=== PATIENT | male | born 1955 | race Caucasian/White ===

== ENCOUNTER → 2017-06-18 08:46 | Outpatient (CLI) | payer MEDICAID, SELFPAY ==
[2017-06-18 09:16] LABS: Basophils % 0.8 % (0.1-2.0); Eosinophils # 0.2 K/mm3 (0.0-0.4); Eosinophils % 3.3 % (0.1-12.0); Hematocrit 42.4 % (42.0-52.0); Hemoglobin 14.3 g/dL (14.1-18.0); Lymphocytes # 2.4 K/mm3 (0.7-4.5); Lymphocytes % 48.2 K/mm3 (10-50); Mean Corpuscular HGB Conc 33.7 g/dL (31.8-35.4); Mean Corpuscular Hemoglobin 29.6 pg (27.0-31.2); Mean Corpuscular Volume 87.6 fl (80-94); Mean Platelet Volume 7.2 fl (7.4-10.4); Monocytes # 0.3 K/mm3 (0.1-1.0); Monocytes % 5.2 % (1.7-9.3); Neutrophils # 2.1 K/mm3 (1.8-7.8); Neutrophils % 42.5 % (37.0-80.0); Platelet Count 303 K/mm3 (142-424); Red Blood Count 4.84 M/mm3 (4.60-6.20); Red Cell Distribution Width 12.9 % (11.5-17.5)
[2017-06-18 11:09] LABS: Alanine Aminotransferase 40 U/L (12-78); Albumin Level 3.7 gm/dL (3.4-5.0); Alkaline Phosphatase 117 U/L (46-116); Anion Gap 12.1 mEq/L (5-15); Aspartate Amino Transferase 21 U/L (15-37); Bilirubin,Total 0.3 mg/dL (0.2-1.0); Blood Urea Nitrogen 11 mg/dL (7-18); Calcium 8.7 mg/dL (8.5-10.1); Carbon Dioxide 27 mmol/L (21.0-32.0); Chloride 105 mmol/L (98-107); Chol/HDL Ratio 3.9 (1-3.5); Cholesterol 124 mg/dL (140-200); Creatinine,Serum 0.71 mg/dL (0.70-1.30); Estimated Glomerular Filt Rate 114 ml/min (>60); GFR (African American) 137 ML/MIN (>60); Globulin 3.6 gm/dl (1.3-3.2); Glucose 91 mg/dL (74-106); HDL Cholesterol 32 mg/dL (27-67); LDL Cholesterol 77 mg/dL (0-130); Potassium 4.1 mmoL/L (3.5-5.1); Sodium 140 mmol/L (136-145); Thyroid Stimulating Hormone 1.62 uIU/ml (0.358-3.740); Total Protein,Serum 7.3 gm/dL (6.4-8.2); Triglycerides 76 mg/dL (30-200); VLDL Cholesterol 15 mg/dL (0-40)
== END ==
PROVIDERS: PCP Internal Medicine; Visit Provider Internal Medicine
DX: I10 Essential (primary) hypertension (principal); E78.5 Hyperlipidemia, unspecified; E03.9 Hypothyroidism, unspecified
CPT/HCPCS: 36415; 80053; 80061; 84443; 85025; G0103

== ENCOUNTER → 2018-01-28 07:26 | Outpatient (CLI) | payer MEDICAID, SELFPAY ==
[2018-01-28 09:10] LABS: Prostate Specific Ag, Diagnost 4.93 ng/mL (0.0-4.0)
== END ==
PROVIDERS: Visit Provider Urology
DX: R97.20 Elevated prostate specific antigen [PSA] (principal)
CPT/HCPCS: 36415; 84153

== ENCOUNTER → 2018-07-31 10:27 | Outpatient (CLI) | payer MEDICAID, SELFPAY ==
[2018-07-31 12:01] LABS: Prostate Specific Ag Screen 5.2 ng/mL (0.0-4.0)
== END ==
PROVIDERS: Visit Provider Urology
DX: Z12.5 Encounter for screening for malignant neoplasm of prostate (principal); R97.20 Elevated prostate specific antigen [PSA]
CPT/HCPCS: 36415; G0103

== ENCOUNTER → 2019-01-27 09:53 | Outpatient (CLI) | payer OTHER, SELFPAY ==
[2019-01-27 13:31] LABS: Prostate Specific Ag, Diagnost 5.94 ng/mL (0.0-4.0)
== END ==
PROVIDERS: Visit Provider Urology
DX: R97.20 Elevated prostate specific antigen [PSA] (principal)
CPT/HCPCS: 36415; 84153

== ENCOUNTER → 2019-02-27 08:10 | Outpatient (CLI) | payer OTHER, SELFPAY ==
[2019-02-27 09:23] LABS: Prostate Specific Ag, Diagnost 6.62 ng/mL (0.0-4.0)
== END ==
PROVIDERS: Visit Provider Urology
DX: R97.20 Elevated prostate specific antigen [PSA] (principal)
CPT/HCPCS: 36415; 84153

== ENCOUNTER → 2020-05-24 08:48 | Outpatient (CLI) | payer OTHER, SELFPAY ==
[2020-05-24 09:07] LABS: Basophils # 0.1 K/mm3 (0-0.2); Basophils % 1.5 % (0.1-2.0); Eosinophils # 0.2 K/mm3 (0.0-0.4); Eosinophils % 2.9 % (0.1-12.0); Hematocrit 41.4 % (42.0-52.0); Hemoglobin 14.1 g/dL (14.1-18.0); Lymphocytes # 2.6 K/mm3 (0.7-4.5); Lymphocytes % 43.1 % (10-50); Mean Corpuscular HGB Conc 34.1 g/dL (31.8-35.4); Mean Corpuscular Hemoglobin 30.3 pg (27.0-31.2); Mean Corpuscular Volume 88.7 fl (80-94); Mean Platelet Volume 7.4 fl (7.4-10.4); Monocytes # 0.4 K/mm3 (0.1-1.0); Monocytes % 6.7 % (1.7-9.3); Neutrophils # 2.7 K/mm3 (1.8-7.8); Neutrophils % 45.8 % (37.0-80.0); Platelet Count 275 K/mm3 (142-424); Red Blood Count 4.66 M/mm3 (4.60-6.20); White Blood Count 5.9 K/mm3 (4.8-10.8)
[2020-05-24 10:43] LABS: Alanine Aminotransferase 24 U/L (12-78); Albumin Level 4.6 g/dl (3.5-5.0); Albumin/Globulin Ratio 1.6 (1.1-1.8); Alkaline Phosphatase 98 U/L (38-126); Anion Gap 12.2 mEq/L (5-15); Aspartate Amino Transferase 25 U/L (17-59); Bilirubin,Total 0.6 mg/dl (0.2-1.3); Blood Urea Nitrogen 15 mg/dl (9-20); Calcium 9.4 mg/dl (8.4-10.2); Carbon Dioxide 26 mmol/L (22.0-30.0); Chloride 108 mmol/L (98-107); Chol/HDL Ratio 4.6 (1-3.5); Cholesterol 138 mg/dl (140-200); Estimated Glomerular Filt Rate 114 ml/min (>60); GFR (African American) 138 ML/MIN (>60); Globulin 2.8 g/dL (1.3-3.2); Glucose 101 mg/dl (74-100); HDL Cholesterol 30 mg/dl (40-60); Potassium 4.2 mmoL/L (3.5-5.1); Sodium 142 mmol/L (136-145); Total Protein,Serum 7.4 g/dl (6.3-8.2); Triglycerides 94 mg/dl (30-150); VLDL Cholesterol 19 mg/dL (0-40)
[2020-05-24 10:54] LABS: Direct LDL Cholesterol 81.52 mg/dL (100-129)
[2020-05-24 11:14] LABS: Prostate Specific Ag, Diagnost 4.77 ng/ml (0.0-4.0); Thyroid Stimulating Hormone 1.56 uIU/mL (0.465-4.68)
== END ==
PROVIDERS: Visit Provider Internal Medicine
DX: E78.5 Hyperlipidemia, unspecified (principal); I10 Essential (primary) hypertension; K21.9 Gastro-esophageal reflux disease without esophagitis; E03.9 Hypothyroidism, unspecified; E66.01 Morbid (severe) obesity due to excess calories; R97.20 Elevated prostate specific antigen [PSA]; N40.1 Benign prostatic hyperplasia with lower urinary tract symptoms
CPT/HCPCS: 36415; 80053; 80061; 84153; 84443; 85025

== ENCOUNTER 2020-08-19 11:17 | Emergency (ER) | payer OTHER, SELFPAY ==
[2020-08-19] VITALS (8 sets, daily range): BP systolic 147–155; BP diastolic 81–89; PULSE 70–78; RESP 16–18; TEMP 36.6–36.8; O2SAT 96–99; BMI 38.5
--- NOTE | 2020-08-19 11:32 | ECG_ITS ---
APPROVED REPORT Exam: Resting ECG HR:77 bpm ECG Measurements Heart Rate 77 AXES MN 226 P 29 QRSd 108 QRS 0 QT 378 T 26 QTc 427 Conclusion Sinus rhythm with 1st degree AV block Otherwise normal ECG Electronically signed by : Collin Francis, 08/20/2020 17:39:33
--- NOTE | 2020-08-19 11:35 | HMH.EDGENADL ---
ED Disposition Clinical Impression: Paresthesias Fatigue Qualifiers: Fatigue type: unspecified Qualified Code(s): R53.83 - Other fatigue Disposition: Home, Self-Care Condition on Discharge: Good Additional Instructions: See Dr. Munguia in his office tomorrow at 2:30 PM. His office will contact you to arrange your outpatient CT scan of the head which is to be performed tomorrow. Return to the emergency department if any of your symptoms return or any new symptoms of concern. Referrals: Toñito Munguia [Primary Care Provider] - - Critical Care Critical Care Time: No Attestation: On 08/19/20, the high probability of a clinically significant, sudden or life threatening deterioration of the following system(s) required my full and direct attention, intervention and personal management. The time I documented below is in addition to time spent performing reported procedures but includes the following listed in this critical care notation. Medical Decision Making - Blanco Inquiry Pt receiving controlled substance: No Vital Signs: 08/19/20 11:20 08/19/20 12:00 08/19/20 12:35 Temperature 98.2 F Temperature Source Oral Pulse Rate 78 74 Pulse Rate [Radial] 77 Respiratory Rate 18 18 18 Blood Pressure 147/81 H 152/81 H Blood Pressure [Right Arm] 152/89 H Blood Pressure Mean 90 104 Blood Pressure Mean [Right Arm] 110 Blood Pressure Position Blood Pressure Position [Right Arm] Sitting 02 Sat by Pulse Oximetry 98 97 99 Oxygen Delivery Method Room Air Room Air 08/19/20 13:00 08/19/20 14:02 08/19/20 14:04 Temperature Temperature Source Pulse Rate 78 74 77 Pulse Rate [Radial] Respiratory Rate 18 18 16 Blood Pressure 149/87 H 155/87 H 155/89 H Blood Pressure [Right Arm] Blood Pressure Mean 98 102 Blood Pressure Mean [Right Arm] Blood Pressure Position Sitting Blood Pressure Position [Right Arm] 02 Sat by Pulse Oximetry 96 97 98 Oxygen Delivery Method Room Air 08/19/20 14:30 Temperature Temperature Source Pulse Rate 76 Pulse Rate [Radial] Respiratory Rate 16 Blood Pressure 153/87 H Blood Pressure [Right Arm] Blood Pressure Mean 97 Blood Pressure Mean [Right Arm] Blood Pressure Position Blood Pressure Position [Right Arm] 02 Sat by Pulse Oximetry 97 Oxygen Delivery Method - Lab Data Lab Results 08/19/20 11:40: WBC 6.9, RBC 4.48 L, Hgb 14.0 L, Hct 39.1 L, MCV 87.3, MCH 31.2, MCHC 35.8 H, RDW 13.3, Plt Count 276, MPV 7.5, Neut % (Auto) 52.2, Lymph % (Auto) 38.0, [place] % (Auto) 5.7, Eos % (Auto) 3.2, Baso % (Auto) 0.9, Neut # (Auto) 3.6, Lymph # (Auto) 2.6, [place] # (Auto) 0.4, Eos # (Auto) 0.2, Baso # (Auto) 0.1 08/19/20 11:40: Sodium 142, Potassium 3.7, Chloride 105, Carbon Dioxide 26, Anion Gap 14.7, BUN 14, Creatinine 0.80, Estimated Creat Clear 124, Estimated GFR 98, Est GFR ( Amer) 119, Glucose 92, Calcium 8.9, Troponin I < 0.01 08/19/20 14:36: Troponin I < 0.01 Result diagrams: 08/19/20 11:40 08/19/20 11:40 Orders (Tests/Meds): ED MEDICATIONS Discontinued Medications Generic Name Dose Route Start Last Admin Trade Name Freq PRN Reason Stop Dose Admin Iopamidol 100 ml 08/19/20 12:39 08/19/20 12:40 Iopamidol-370 (76%);100ml Bottle IV 08/19/20 12:40 100 ml ONCE ONE Administration Sodium Chloride 40 ml 08/19/20 12:39 08/19/20 12:40 0.9 % Sodium Chloride 50 Ml Vial IV 08/19/20 12:40 40 ml ONCE ONE Administration ORDERS Category Date Time Status Troponin I Q3H Lab 08/19/20 17:45 Ordered - Radiology Data #1 Image(s): Chest Image Reviewed: Yes I have reviewed radiologist's interpretation PROCEDURE: XR CHEST PORTABLE CLINICAL HISTORY: LT ARM NUMBNESS COMPARISON: No exams were available for comparison FINDINGS: The cardiomediastinal silhouette and pulmonary vascularity are within normal limits. The lungs are clear without infiltrates, suspicious nodules, or pleural effusions.
--- NOTE | 2020-08-19 11:38 | XR_ITS ---
PROCEDURE: XR CHEST PORTABLE CLINICAL HISTORY: LT ARM NUMBNESS COMPARISON: No exams were available for comparison FINDINGS: The cardiomediastinal silhouette and pulmonary vascularity are within normal limits. The lungs are clear without infiltrates, suspicious nodules, or pleural effusions. No acute bony abnormalities. IMPRESSION: No acute findings. Dictated by: Jason Nogueira MD 08/19/2020 12:02 Jason Nogueira MD in [facility] 08/19/2020 12:02
[2020-08-19 11:46] LABS: Basophils # 0.1 K/mm3 (0-0.2); Basophils % 0.9 % (0.1-2.0); Eosinophils # 0.2 K/mm3 (0.0-0.4); Eosinophils % 3.2 % (0.1-12.0); Hematocrit 39.1 % (42.0-52.0); Lymphocytes # 2.6 K/mm3 (0.7-4.5); Mean Corpuscular HGB Conc 35.8 g/dL (31.8-35.4); Mean Corpuscular Hemoglobin 31.2 pg (27.0-31.2); Mean Corpuscular Volume 87.3 fl (80-94); Mean Platelet Volume 7.5 fl (7.4-10.4); Monocytes # 0.4 K/mm3 (0.1-1.0); Monocytes % 5.7 % (1.7-9.3); Neutrophils # 3.6 K/mm3 (1.8-7.8); Neutrophils % 52.2 % (37.0-80.0); Platelet Count 276 K/mm3 (142-424); Red Blood Count 4.48 M/mm3 (4.60-6.20); Red Cell Distribution Width 13.3 % (11.5-17.5); White Blood Count 6.9 K/mm3 (4.8-10.8)
[2020-08-19 11:49] LABS: Chloride 105 mmol/L (98-107); Sodium 142 mmol/L (136-145)
[2020-08-19 11:50] LABS: Potassium 3.7 mmoL/L (3.5-5.1)
[2020-08-19 11:52] LABS: Blood Urea Nitrogen 14 mg/dl (9-20); Creatinine Clearance Estimated 124 mL/min (50-200); Estimated Glomerular Filt Rate 98 ml/min (>60); GFR (African American) 119 ML/MIN (>60)
[2020-08-19 11:53] LABS: Anion Gap 14.7 mEq/L (5-15); Calcium 8.9 mg/dl (8.4-10.2); Carbon Dioxide 26 mmol/L (22.0-30.0); Glucose 92 mg/dl (74-100)
--- NOTE | 2020-08-19 12:02 | CT_ITS ---
Procedure: CT ANGIO NECK CLINICAL HISTORY: left arm and leg tingling COMPARISON: CT CT ANGIO HEAD from 08/19/2020 TECHNIQUE: IV Contrast: 100ml Isovue 370 Axial images obtained with sagittal and coronal reformats. All CT scans at the facility use one or more dose reduction, viz: automated exposure control, ma/kV adjustment per patient size (including targeted exams where dose is matched to indication, i.e. head), or iterative reconstruction technique. FINDINGS: CTA neck: The aortic arch has an unremarkable appearance. Common carotid arteries are unremarkable. Minimal amount of plaque is present in the carotid bulbs with no significant stenosis or ulceration. No carotid stenosis apparent. There is a mild degree of motion artifact which somewhat limits fine detail. Arterial opacification of the vertebrals is somewhat less than optimal. Motion artifact also somewhat obscures evaluation. The left vertebral is dominant. Considerable artifact is present involving the right vertebral at the T6 level with a questionable area of stenosis. The right vertebral terminates with upper cervical branches and with the right anterior inferior cerebellar artery. The left vertebral has an unremarkable appearance and gives rise to the basilar artery with only minimal contribution from the right vertebral. There is an oval area of fluid density in the AP window on the left at 3.8 x 2 cm possibly due to a loculated area of fluid in the superior pericardial recess versus an area of low-dense adenopathy. CTA head: The the less than optimal contrast enhancement of the arterial structures. Atherosclerotic changes are present involving the cavernous portion of the carotid arteries with mild fusiform dilatation of the cavernous portions on both sides with calcific plaque. There is persistent origin of the right posterior cerebral artery. No obvious aneurysm or major intracranial occlusive process apparent. No enhancing lesions are apparent.. No obvious sinus thrombosis IMPRESSION: 1. No significant carotid stenosis. 2. 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 3. Mild dilatation of the cavernous portion of the carotid arteries with mild amount calcific plaque. No intracranial stenosis or focal aneurysm or major intracranial occlusive process. Dictated by: Jason Nogueira MD 08/19/2020 13:25 Jason Nogueira MD in [facility] 08/19/2020 13:25
--- NOTE | 2020-08-19 12:02 | CT_ITS ---
PROCEDURE: CT HEAD/BRAIN WO CON CLINICAL INDICATION: left arm and leg tingling COMPARISON: CT CT ANGIO HEAD from 08/19/2020 TECHNIQUE: Axial images obtained. All CT scans at the facility use one or more dose reduction, viz: automated exposure control, ma/kV adjustment per patient size (including targeted exams where dose is matched to indication, i.e. head), or iterative reconstruction technique. FINDINGS: No midline shift, mass effect, hydrocephalus, or extra-axial fluid collection is evident. There is a small area slight increased density within the region of the genu of the left internal capsule measuring approximately 5 mm. This area does not demonstrate any enhancement on the CTA images and is without surrounding edema. No mastoid effusion. No sinus air-fluid level. There is some mucous within the right aspect of the sphenoid sinus. No acute calvarial abnormality. IMPRESSION: Small focus of slight increased density within the genu of the left maternal capsule. This may be due to an early area of mineralization. There are no previous exams available for comparison. Suggest 12-24 hour follow-up to assure this does not represent an atypical area of hemorrhage. Dictated by: Jason Nogueira MD 08/19/2020 13:05 Jason Nogueira MD in [facility] 08/19/2020 13:05
[2020-08-19 12:32] LABS: Troponin I < 0.01 ng/ml (0.00-0.034)
--- NOTE | 2020-08-19 12:44 | HMH.ITSTN ---
patient states he was very nervous throughout ct scan. Before contrast was injected patient felt like his heart was racing. Instructed patient to relax with breathing technique. Gave me permission to start contrast and finish ct scan. Patient was shaking alot in his arms due to his anxiety. I transported back to ER Room 7 and connected bp, o2 and cardiac montior to patient so ER staff could monitor patient with new symptoms. I spoke with nurse Ita Lyons and told her about patients current anxiety, felt like heart was racing and shaking of his arms. Once hooked back to finished yarn examiner heart rate was in high 70's.
--- NOTE | 2020-08-19 14:38 | PC.NURSE ---
repeat troponin sent to lab at this time
[2020-08-19 15:22] LABS: Troponin I < 0.01 ng/ml (0.00-0.034)
== END 2020-08-19 15:59 | disposition home or self-care (01) ==
PROVIDERS: Emergency Provider Emergency Medicine; PCP Internal Medicine
DX: R20.2 Paresthesia of skin (principal); R53.83 Other fatigue
CPT/HCPCS: 70450; 70496; 70498; 71045; 80048; 84484; 85025; 93005; 99283; Q9967

== ENCOUNTER → 2020-08-20 12:15 | Outpatient (CLI) | payer OTHER, SELFPAY ==
--- NOTE | 2020-08-20 12:21 | CT_ITS ---
PROCEDURE: CT HEAD/BRAIN WO/W CON CLINICAL INDICATION: NUMBNESS/TINGLING,HEMORRHAGE,?TIA COMPARISON: No exams were available for comparison TECHNIQUE: IV Contrast: 100ML Isovue 370 Axial images obtained. All CT scans at the facility use one or more dose reduction, viz: automated exposure control, ma/kV adjustment per patient size (including targeted exams where dose is matched to indication, i.e. head), or iterative reconstruction technique. FINDINGS: No midline shift, mass effect, intracranial hemorrhage, hydrocephalus, or extra-axial fluid collection is evident. The cortical sulci are mildly prominent over frontal lobes. Following injection of contrast there is satisfactory opacification and the [id number] appears grossly normal. There is no evidence of aneurysm. There is no abnormal vascular enhancement within cerebral or cerebellar hemispheres. The calvarium has an unremarkable appearance. The bilateral mastoids are clear. , The paranasal sinuses appear clear, frontal sinuses are somewhat hypoplastic. IMPRESSION: Findings of mild frontal cortical atrophy no acute intracranial pathology noted Dictated by: Dr. Vega Jeffries MD 08/20/2020 13:47 Dr. Vega Jeffries MD in [facility] 08/20/2020 13:47
== END ==
PROVIDERS: PCP Internal Medicine; Visit Provider Internal Medicine
DX: R20.0 Anesthesia of skin (principal); R20.2 Paresthesia of skin; R58 Hemorrhage, not elsewhere classified
CPT/HCPCS: 70470

== ENCOUNTER → 2021-03-18 15:09 | Outpatient (CLI) | payer OTHER, SELFPAY | PROVIDERS: Visit Provider Nurse Practitioner | DX: U07.1 COVID-19 (principal) | CPT/HCPCS: C9803; U0003; U0005 ==

== ENCOUNTER 2021-08-10 22:17 | Emergency (ER) | payer OTHER, SELFPAY ==
--- NOTE | 2021-08-10 22:17 | ECG_ITS ---
APPROVED REPORT Exam: Resting ECG HR:90 bpm ECG Measurements Heart Rate 90 AXES MA 165 P -5 QRSd 114 QRS 1 QT 355 T 33 QTc 403 Conclusion SINUS RHYTHM MODERATE INTRAVENTRICULAR CONDUCTION DELAY [110+ ms QRS DURATION] BORDERLINE ECG UNCONFIRMED REPORT Electronically signed by : Collin Francis MD 08/11/2021 22:17:05
[2021-08-10 22:18] VITALS: BP 171/107; PULSE 96; RESP 16; TEMP 36.7; O2SAT 97; BMI 39.5
[2021-08-10 22:19] VITALS: BMI 39.5
--- NOTE | 2021-08-10 22:21 | XR_ITS ---
PROCEDURE INFORMATION: Exam: XR Chest Exam date and time: 08/10/2021 10:20 PM Age: 65 years old Clinical indication: Sternal or substernal pain; Patient HX: Substernal chest pressure per patient. ; Additional info: Chest pain TECHNIQUE: Imaging protocol: XR of the chest. Views: 2 views. COMPARISON: CR XR CHEST PORTABLE 08/19/2020 11:50 AM FINDINGS: Lungs: Unremarkable. No consolidation. Pleural spaces: Unremarkable. No pleural effusion. No pneumothorax. Heart/Mediastinum: Unremarkable. No cardiomegaly. Bones/joints: Unremarkable. IMPRESSION: No acute findings.
[2021-08-10 22:30] LABS: Basophils # 0.1 K/mm3 (0-0.2); Basophils % 0.5 % (0.1-2.0); Eosinophils # 0.1 K/mm3 (0.0-0.4); Eosinophils % 1.2 % (0.1-12.0); Hematocrit 40.6 % (42.0-52.0); Hemoglobin 14.9 g/dL (14.1-18.0); Lymphocytes # 2.6 K/mm3 (0.7-4.5); Lymphocytes % 24.3 % (10-50); Mean Corpuscular HGB Conc 36.6 g/dL (31.8-35.4); Mean Corpuscular Hemoglobin 30.9 pg (27.0-31.2); Mean Corpuscular Volume 84.3 fl (80-94); Monocytes # 0.8 K/mm3 (0.1-1.0); Monocytes % 7.1 % (1.7-9.3); Neutrophils # 7.3 K/mm3 (1.8-7.8); Platelet Count 279 K/mm3 (142-424); Red Blood Count 4.82 M/mm3 (4.60-6.20); Red Cell Distribution Width 13.1 % (11.5-17.5); White Blood Count 10.9 K/mm3 (4.8-10.8)
[2021-08-10 22:37] LABS: Alanine Aminotransferase 39 U/L (12-78); Albumin Level 4.4 g/dl (3.5-5.0); Alkaline Phosphatase 120 U/L (38-126); Amylase 49 U/L (30-110); Anion Gap 11.4 mEq/L (5-15); Aspartate Amino Transferase 33 U/L (17-59); Bilirubin,Indirect 0.4 mg/dL (0.0-0.9); Bilirubin,Total 0.4 mg/dl (0.2-1.3); Bilirubin,Unconjugated 0.7 mg/dL (0.0-1.1); Blood Urea Nitrogen 16 mg/dl (9-20); Calcium 9.2 mg/dl (8.4-10.2); Carbon Dioxide 27 mmol/L (22.0-30.0); Chloride 105 mmol/L (98-107); Creatinine Clearance Estimated 126 mL/min (50-200); Estimated Glomerular Filt Rate 114 ml/min (>60); GFR (African American) 138 ML/MIN (>60); Glucose 110 mg/dl (74-100); Lipase 41 U/L (23-300); Potassium 3.4 mmoL/L (3.5-5.1); Sodium 140 mmol/L (136-145); Total Protein,Serum 7.8 g/dl (6.3-8.2)
[2021-08-10 22:42] LABS: C-Reactive Protein 23.7 mg/L (0-4)
[2021-08-10 22:57] LABS: Procalcitonin 0.104 ng/mL (0.0-2.0); T4 (Thyroxine) 9.7 ug/dl (5.53-11.0)
--- NOTE | 2021-08-10 22:59 | HMH.EDCP ---
ED Disposition Clinical Impression: Chest pain Qualifiers: Chest pain type: precordial pain Qualified Code(s): R07.2 - Precordial pain Disposition: Home, Self-Care Condition on Discharge: Good Instructions: DI for Chest Pain Additional Instructions: see pcp and card for follow up Referrals: Toñiot Munguia MD [Primary Care Provider] - Adalberto Kirkpatrick MD [Staff Physician] - - Critical Care Critical Care Time: No Attestation: On 08/10/21, the high probability of a clinically significant, sudden or life threatening deterioration of the following system(s) required my full and direct attention, intervention and personal management. The time I documented below is in addition to time spent performing reported procedures but includes the following listed in this critical care notation. Medical Decision Making - Medical Records Medical records reviewed: Yes: I reviewed the patient's medical records. - Blanco Inquiry Pt receiving controlled substance: No Vital Signs: 08/10/21 22:18 Temperature 98.1 F Temperature Source Oral Pulse Rate [Right] 96 H Respiratory Rate 16 Blood Pressure [Right Arm] 171/107 H Blood Pressure Mean [Right Arm] 128 02 Sat by Pulse Oximetry 97 - Lab Data Lab results reviewed: Yes: I reviewed the patient's lab results. Lab Results 08/10/21 22:20: WBC 10.9 H, RBC 4.82, Hgb 14.9, Hct 40.6 L, MCV 84.3, MCH 30.9, MCHC 36.6 H, RDW 13.1, Plt Count 279, MPV 7.0 L, Neut % (Auto) 67.0, Lymph % (Auto) 24.3, [place] % (Auto) 7.1, Eos % (Auto) 1.2, Baso % (Auto) 0.5, Neut # (Auto) 7.3, Lymph # (Auto) 2.6, [place] # (Auto) 0.8, Eos # (Auto) 0.1, Baso # (Auto) 0.1, ESR 32 H 08/10/21 22:20: Sodium 140, Potassium 3.4 L, Chloride 105, Carbon Dioxide 27, Anion Gap 11.4, BUN 16, Creatinine 0.70, Estimated Creat Clear 126, Estimated GFR 114, Est GFR ( Amer) 138, Glucose 110 H, Calcium 9.2, Total Bilirubin 0.4, Direct Bilirubin 0.0, Conjugated Bilirubin 0.0, Indirect Bilirubin 0.4, Unconjugated Bilirubin 0.7, AST 33, ALT 39, Alkaline Phosphatase 120, Troponin I < 0.01, C-Reactive Protein 23.7 H, Total Protein 7.8, Albumin 4.4, Amylase 49, Lipase 41, Procalcitonin 0.104, TSH 1.43, Thyroxine (T4) 9.7 Result diagrams: 08/10/21 22:20 08/10/21 22:20 Orders (Tests/Meds): ED MEDICATIONS Generic Name Dose Route Start Last Admin Trade Name Freq PRN Reason Stop Dose Admin Sodium Chloride 1,000 mls @ 999 mls/hr 08/10/21 23:00 08/10/21 22:47 Sod Chlor 0.9% 1000ml Bag IV 08/11/21 00:00 999 mls/hr .Q1H1M DENG Administration Sodium Chloride 8 ml 08/10/21 22:42 Sodium Chloride 0.9% 10ml Vial IV 09/09/21 22:41 NEEDED PRN dilute pepcid Discontinued Medications Generic Name Dose Route Start Last Admin Trade Name Freq PRN Reason Stop Dose Admin Aspirin 243 mg 08/10/21 22:30 08/10/21 22:46 Aspirin 81mg Chewable Tablet PO 08/10/21 22:31 243 mg ONCE ONE Administration Famotidine 20 mg 08/10/21 22:42 08/10/21 22:46 Famotidine 20mg/2ml Vial IV 08/10/21 22:43 20 mg ONCE ONE Administration Metoclopramide HCl 10 mg 08/10/21 22:43 08/10/21 22:46 Metoclopramide Hcl 10mg/2ml Vial IVP 08/10/21 22:44 10 mg ONCE ONE Administration ORDERS Category Date Time Status Rapid PCR Covid and Flu A/B Stat Lab 08/10/21 22:19 Ordered Troponin I Q3H Lab 08/11/21 01:30 Ordered Troponin I Q3H Lab 08/11/21 04:30 Ordered Urinalysis and Microscopic Stat Lab 08/10/21 22:19 Ordered - Radiology Data #1 Image(s): Chest Image Reviewed: Yes I have reviewed radiologist's interpretation Preliminary Findings: Normal/NAD - ECG Data Tracing #1 Normal Sinus Rhythm: Yes Ischemic changes: non-specific ST-T wave changes Medical Decision Narrative: has stable exam and labs and improved after iv meds - will ask pt to see card for follow up and pcp Chest Pain HPI - General Chief Complaint: Chest Pain Stated Complaint: cp Time Seen by Provider:
[2021-08-10 23:04] LABS: Troponin I < 0.01 ng/ml (0.00-0.034)
--- NOTE | 2021-08-10 23:06 | PC.NURSE ---
called radiology to check status of vrad, she will chat with them.
[2021-08-10 23:10] LABS: Thyroid Stimulating Hormone 1.43 uIU/mL (0.465-4.68)
[2021-08-10 23:21] LABS: Erythrocyte Sedimentation Rate 32 mm/hr (0-20)
[2021-08-11 00:27] VITALS: BP 163/98; PULSE 80; RESP 18; TEMP 36.7; O2SAT 98
== END 2021-08-11 00:34 | disposition home or self-care (01) ==
PROVIDERS: Emergency Provider Emergency Medicine; PCP Internal Medicine
DX: R07.2 Precordial pain (principal)
CPT/HCPCS: 71046; 80048; 80076; 82150; 83690; 84145; 84436; 84443; 84484; 85025; 85651; 86140; 93005; 96365; 96375; 99284

== ENCOUNTER 2021-08-18 19:26 | Emergency (ER) | payer OTHER, SELFPAY ==
[2021-08-18 19:27] VITALS: BP 195/133; PULSE 89; RESP 16; TEMP 36.9; O2SAT 94; BMI 39.5
[2021-08-18 19:48] LABS: Basophils # 0.2 K/mm3 (0-0.2); Basophils % 1.4 % (0.1-2.0); Eosinophils # 0.1 K/mm3 (0.0-0.4); Eosinophils % 0.7 % (0.1-12.0); Hematocrit 41.4 % (42.0-52.0); Hemoglobin 14.2 g/dL (14.1-18.0); Lymphocytes # 2.3 K/mm3 (0.7-4.5); Mean Corpuscular HGB Conc 34.3 g/dL (31.8-35.4); Mean Corpuscular Hemoglobin 31.1 pg (27.0-31.2); Mean Corpuscular Volume 90.7 fl (80-94); Mean Platelet Volume 8.1 fl (7.4-10.4); Monocytes # 0.6 K/mm3 (0.1-1.0); Monocytes % 5.2 % (1.7-9.3); Neutrophils % 71.8 % (37.0-80.0); Platelet Count 345 K/mm3 (142-424); Red Blood Count 4.57 M/mm3 (4.60-6.20); Red Cell Distribution Width 13.5 % (11.5-17.5); White Blood Count 11.1 K/mm3 (4.8-10.8)
[2021-08-18 19:55] LABS: Chloride 104 mmol/L (98-107)
[2021-08-18 19:56] LABS: Potassium 3.7 mmoL/L (3.5-5.1); Sodium 138 mmol/L (136-145)
[2021-08-18 19:58] LABS: Alanine Aminotransferase 42 U/L (12-78); Alkaline Phosphatase 122 U/L (38-126); Aspartate Amino Transferase 37 U/L (17-59); Bilirubin,Total 0.5 mg/dl (0.2-1.3); Blood Urea Nitrogen 16 mg/dl (9-20); Creatinine Clearance Estimated 126 mL/min (50-200); Estimated Glomerular Filt Rate 85 ml/min (>60); GFR (African American) 103 ML/MIN (>60)
[2021-08-18 19:59] LABS: Albumin Level 4.6 g/dl (3.5-5.0); Albumin/Globulin Ratio 1.4 (1.1-1.8); Anion Gap 11.7 mEq/L (5-15); Calcium 9.4 mg/dl (8.4-10.2); Carbon Dioxide 26 mmol/L (22.0-30.0); Globulin 3.4 g/dL (1.3-3.2); Glucose 122 mg/dl (74-100); Lipase 44 U/L (23-300)
--- NOTE | 2021-08-18 20:00 | ECG_ITS ---
APPROVED REPORT Exam: Resting ECG HR:76 bpm ECG Measurements Heart Rate [address] 216 P 46 QRSd 115 QRS 41 QT 366 T 28 QTc 397 Conclusion SINUS RHYTHM WITH FIRST DEGREE AV BLOCK MODERATE INTRAVENTRICULAR CONDUCTION DELAY [110+ ms QRS DURATION] ABNORMAL ECG UNCONFIRMED REPORT Electronically signed by : Collin Francis MD 08/19/2021 14:40:07
[2021-08-18 20:14] LABS: Troponin I < 0.01 ng/ml (0.00-0.034)
--- NOTE | 2021-08-18 20:18 | CT_ITS ---
PROCEDURE INFORMATION: Exam: CT Abdomen And Pelvis With Contrast Exam date and time: 08/18/2021 8:29 PM Age: 65 years old Clinical indication: Abdominal pain; Additional info: Abd. Pain TECHNIQUE: Imaging protocol: Computed tomography of the abdomen and pelvis with contrast. Radiation optimization: All CT scans at this facility use at least one of these dose optimization techniques: automated exposure control; mA and/or kV adjustment per patient size (includes targeted exams where dose is matched to clinical indication); or iterative reconstruction. Contrast material: ISOVUE; Contrast volume: 75 ml; Contrast route: IV; COMPARISON: CR XR CHEST 2V 08/10/2021 10:20 PM FINDINGS: Liver: Diffuse low-attenuation of the liver. No mass. Gallbladder and bile ducts: Suspected wall thickening of the gallbladder evaluation of which is limited by motion. No radiodense stone. Pancreas: Normal enhancement. No ductal dilation. Spleen: No splenomegaly. Adrenal glands: No mass. Kidneys and ureters: No hydronephrosis. Stomach and bowel: Diverticulosis coli without evidence for diverticulitis. No obstruction. Appendix: No evidence of appendicitis. Intraperitoneal space: No free air. No significant fluid collection. Vasculature: Calcified atherosclerosis. No aneurysm. Lymph nodes: No enlarged lymph nodes. Urinary bladder: No acute abnormality. Reproductive: No acute abnormality. Bones/joints: Degenerative changes. No acute fracture. Soft tissues: No soft tissue swelling. IMPRESSION: 1. Suspected wall thickening of the gallbladder evaluation of which is limited by motion. If there is concern for cholecystitis, right upper quadrant ultrasound is recommended for further evaluation. 2. Diverticulosis coli without evidence for diverticulitis.
--- NOTE | 2021-08-18 21:07 | PC.NURSE ---
Dr. Dodge s/w LUCIANOAD
--- NOTE | 2021-08-18 21:09 | HMH.EDNVD ---
ED Disposition Clinical Impression: Gall bladder disease Abdominal pain Qualifiers: Abdominal location: right upper quadrant Qualified Code(s): R10.11 - Right upper quadrant pain Disposition: Home, Self-Care Condition on Discharge: Fair Instructions: DI for Acute Abdominal Pain Additional Instructions: call pcp and dr pathak in am for follow up and return ed if needed Referrals: Toñito Munguia MD [Primary Care Provider] - Castro Pathak MD [Staff Physician] - - Critical Care Critical Care Time: No Attestation: On 08/18/21, the high probability of a clinically significant, sudden or life threatening deterioration of the following system(s) required my full and direct attention, intervention and personal management. The time I documented below is in addition to time spent performing reported procedures but includes the following listed in this critical care notation. Medical Decision Making - Medical Records Medical records reviewed: Yes: I reviewed the patient's medical records. - Blanco Inquiry Pt receiving controlled substance: No Vital Signs: 08/18/21 19:27 Temperature 98.4 F Temperature Source Oral Pulse Rate [Left Radial] 89 Respiratory Rate 16 Blood Pressure [Right Arm] 195/133 H Blood Pressure Mean [Right Arm] 153 Blood Pressure Source [Right Arm] Automatic Cuff Blood Pressure Position [Right Arm] Sitting 02 Sat by Pulse Oximetry 94 L Oxygen Delivery Method Room Air - Lab Data Lab results reviewed: Yes: I reviewed the patient's lab results. Lab Results 08/18/21 19:40: WBC 11.1 H, RBC 4.57 L, Hgb 14.2, Hct 41.4 L, MCV 90.7, MCH 31.1, MCHC 34.3, RDW 13.5, Plt Count 345, MPV 8.1, Neut % (Auto) 71.8, Lymph % (Auto) 21.0, [place] % (Auto) 5.2, Eos % (Auto) 0.7, Baso % (Auto) 1.4, Neut # (Auto) 8.0 H, Lymph # (Auto) 2.3, [place] # (Auto) 0.6, Eos # (Auto) 0.1, Baso # (Auto) 0.2 08/18/21 19:40: Sodium 138, Potassium 3.7, Chloride 104, Carbon Dioxide 26, Anion Gap 11.7, BUN 16, Creatinine 0.90, Estimated Creat Clear 126, Estimated GFR 85, Est GFR ( Amer) 103, Glucose 122 H, Calcium 9.4, Total Bilirubin 0.5, AST 37, ALT 42, Alkaline Phosphatase 122, Troponin I < 0.01, Total Protein 8.0, Albumin 4.6, Globulin 3.4 H, Albumin/Globulin Ratio 1.4, Lipase 44 08/18/21 19:40: ESR 26 H 08/18/21 19:40: C-Reactive Protein 9.9 H, Amylase 50, Procalcitonin 0.105 08/18/21 21:20: Urine Color Yellow, Urine Appearance Clear, Urine pH 6.0, Ur Specific [place] 1.010, Urine Protein Negative, Urine Glucose (UA) Negative, Urine Ketones Negative, Urine Blood Negative, Urine Nitrate Negative, Urine Bilirubin Negative, Urine Urobilinogen 1.0, Ur Leukocyte Esterase Negative, Urine RBC None, Urine WBC Occasional, Ur Squamous Epith Cells Occasional, Urine Bacteria Trace Result diagrams: 08/18/21 19:40 08/18/21 19:40 Orders (Tests/Meds): ED MEDICATIONS Generic Name Dose Route Start Last Admin Trade Name Freq PRN Reason Stop Dose Admin Sodium Chloride 1,000 mls @ 999 mls/hr 08/18/21 20:15 08/18/21 20:24 Sod Chlor 0.9% 1000ml Bag IV 08/18/21 21:15 999 mls/hr .Q1H1M DENG Administration Sodium Chloride 10 ml 08/18/21 19:54 Sodium Chloride 0.9% 10ml Flush Syringe IV 09/17/21 19:53 NEEDED PRN Maintain IV Site Sodium Chloride 8 ml 08/18/21 21:21 Sodium Chloride 0.9% 10ml Vial IV 09/17/21 21:20 NEEDED PRN dilute pepcid Discontinued Medications Generic Name Dose Route Start Last Admin Trade Name Freq PRN Reason Stop Dose Admin Acetaminophen/Codeine Phosphate 1 packet 08/18/21 22:41 Acetaminophen 300mg W/Codeine 30mg Take Home Pack (6) PO 08/18/21 22:42 ONCE ONE Aspirin 324 mg 08/18/21 19:40 08/18/21 19:45 Aspirin 81mg Chewable Tablet PO 08/18/21 19:41 324 mg ONCE ONE Administration Belladonna Alkaloids 60 ml 08/18/21 19:40 08/18/21 19:45 Gi Cocktail 60ml Udc PO 08/18/21 19:41 60 ml ONCE ONE Administration Famotidine 20 mg 08/18/21 21:2
[2021-08-18 21:14] LABS: Amylase 50 U/L (30-110)
[2021-08-18 21:20] LABS: C-Reactive Protein 9.9 mg/L (0-4)
[2021-08-18 21:33] LABS: Procalcitonin 0.105 ng/mL (0.0-2.0)
[2021-08-18 21:37] LABS: Microscopic, Urine URINE MICROSCOPIC (MICROSCOPIC)
[2021-08-18 21:38] LABS: Appearance,Urine CLEAR (Clear); Bilirubin,Urine Negative (Negative); Blood, Urine Negative (Negative); Color,Urine YELLOW (Yellow); Glucose,Urine (UA) Negative (Negative); Ketones,Urine Negative (Negative); Leukocyte Esterase,Urine Negative (Negative); Nitrate,Urine Negative (Negative); Protein,Urine Negative (Negative)
[2021-08-18 22:18] LABS: Bacteria,Urine Trace /lpf; Squamous Epithelial Cell,Urine Occasional #/hpf (0-5); WBC,Urine Occasional #/hpf (0-3)
[2021-08-18 22:28] LABS: Erythrocyte Sedimentation Rate 26 mm/hr (0-20)
[2021-08-18 22:41] VITALS: BP 158/90; PULSE 87; RESP 18; TEMP 36.8; O2SAT 97
== END 2021-08-18 23:05 | disposition home or self-care (01) ==
PROVIDERS: Emergency Provider Emergency Medicine; PCP Internal Medicine
DX: R10.11 Right upper quadrant pain (principal); R10.13 Epigastric pain; R14.0 Abdominal distension (gaseous); R11.0 Nausea; K21.9 Gastro-esophageal reflux disease without esophagitis
CPT/HCPCS: 74177; 80053; 81001; 82150; 83690; 84145; 84484; 85025; 85651; 86140; 93005; 96361; 96374; 96375; 96376; 99285; J2405; Q9967

== ENCOUNTER → 2021-08-19 10:29 | Outpatient (CLI) | payer OTHER, SELFPAY ==
--- NOTE | 2021-08-19 10:37 | US_ITS ---
FINAL REPORT CLINICAL HISTORY: EPIGASTRIC PAIN,ABN GB ON CT FINDINGS: Sonographic images of the right upper quadrant were obtained. The pancreas is partially obscured. The liver has increased echogenicity consistent with fatty infiltration. There are multiple small gallstones within the gallbladder. There is borderline gallbladder wall thickening at 3 mm. There is a small amount of Vicky cholecystic fluid. There is no evidence of biliary ductal dilatation. The common duct was not measured but there is no evidence of ductal dilatation. Limited images of the right kidney are unremarkable. IMPRESSION: Findings worrisome for cholecystitis. Fatty infiltrated liver. Reviewed, Interpreted and Dictated by Blake Fields III, MD Transcribed by Auorra Yanes Authenticated and [facility]
== END ==
PROVIDERS: PCP Internal Medicine; Visit Provider Internal Medicine
DX: R10.13 Epigastric pain (principal); R93.89 Abnormal findings on diagnostic imaging of other specified body structures
CPT/HCPCS: 76705

== ENCOUNTER → 2021-09-08 11:49 | Outpatient (CLI) | payer OTHER, SELFPAY | PROVIDERS: PCP Internal Medicine; Visit Provider Surgery | DX: Z01.812 Encounter for preprocedural laboratory examination (principal); Z20.822 Contact with and (suspected) exposure to COVID-19; K80.00 Calculus of gallbladder with acute cholecystitis without obstruction | CPT/HCPCS: C9803; U0003; U0005 ==

== ENCOUNTER 2021-09-10 09:33 | Day surgery (SDC) | payer OTHER, SELFPAY ==
[2021-09-10] VITALS (13 sets, daily range): BP systolic 97–121; BP diastolic 49–74; PULSE 66–95; RESP 17–22; TEMP 36.1–43; O2SAT 93–100; BMI 36.5
--- NOTE | 2021-09-10 14:20 | HMH.OPNOTE ---
Date of procedure: 09/10/21 Pre-op Diagnosis:: Acute calculus cholecystitis Post-op Diagnosis:: Same Procedure performed:: Laparoscopic cholecystectomy Surgeon:: Castro Pathak MD MEDICAL STAFF SERVICES MANAGER:: Camille Jeronimo Anesthesia: GETA Estimated blood loss (mL): 15 Operative findings:: Significant acute cholecystitis with active inflammatory response and wall thickening Severe infundibular thickening Dome-down approach utilized Operative note:: After informed consent was obtained, the patient was taken to the operating room and placed in the supine position. General anesthesia was induced and the abdomen was prepped and draped in a sterile fashion. After infiltration with local anesthetic an infraumbilical incision was made. A Veress needle was placed in position. The abdomen was insufflated. A 5 mm optical trocar was placed in position. Under direct visualization, a 12 mm trocar was placed in the subxiphoid position and 2 additional 5 mm trocars were placed in the right upper quadrant. The gallbladder was severely inflamed and enlarged. It was carefully elevated above the liver margin as dissection proceeded along the infundibulum. Fairly severe active inflammatory change and wall thickening noted. The tissue around the cystic duct was carefully dissected. The decision was made to proceed with a dome-down approach secondary to the above findings. Harmonic ivanna were utilized to make a window behind the infundibulum. The gallbladder was dissected free from the liver margin utilizing harmonic ivanna. Endoloops (x2) were then used to control of the infundibular/cystic duct margin. Transection above the site was completed with harmonic ivanna. The gallbladder was placed in a retrieval bag and removed through the subxiphoid trocar site. The right upper quadrant was thoroughly irrigated. No active bleeding or bile leak was noted. Fascia at the subxiphoid trocar site was reapproximated utilizing 0 Ethibond. The remaining trocars were removed. All wounds were irrigated and skin was closed with 4-0 Monocryl in a subcuticular fashion. Steri-Strips were applied. The patient's anesthetic agents were reversed and extubation was completed prior to transfer to recovery in stable condition. Condition: stable Disposition: PACU Specimens:: Gallbladder Complications:: No immediate
--- NOTE | 2021-09-10 14:31 | P.PN_ITS ---
[facility] Anesthesia Checklist - Patient Identification Patient Identification: Arm Band - Structural Data Admitted From: Home Planned Operative Procedure/s: kaylynn Consent for Planned Operative Procedure(s) Verified: Yes - NPO Status Verified Time NPO: 00:00 - Airway Assessment C-Spine Mobility Assessed: Yes TMJ Mobility Assessed: Yes Dentition: Good Dentition - Neurological Assessment Level of Consciousness: Awake Hx Seizures: No Numbness or tingling in extremities: No - Anesthesia Plan Anesthesia Risk discussed: Yes Anesthesia Plan: Verified ASA Class: II Anesthesia Type: General [facility] History I have reviewed the patient's past medical history: Yes Medical History: Reports:: Hyperlipidemia, Hypertension Denies:: Cancer, Diabetes Mellitus Type 1, Diabetes Mellitus Type 2, Internal Pacemaker, MRSA, Seizures *Have you ever received a pneumonia vaccine?: No *Have you received a flu vaccine this season?: No Other Medical History: Reports: Thyroid Disease Anesthesia experience/problems:: None Other Surgeries: Yes: Colonoscopy. No: Pacemaker Amputation: No Fractures: No - *Social History Last grade of school completed: High school graduate Smoking Status: Unknown if ever smoked Alcohol Intake: current Alcohol Intake Frequency:: holidays/special occasions only Substance Use Type: denies use *Occupational Status:: employed Housing: house Household Members: spouse *Travel in the last 8 weeks: None Family Hx:: Unable to obtain
--- NOTE | 2021-09-10 14:32 | HMH.ANESI ---
[facility] Anesthesia Record Part I Intake, IV Amount: 800 Estimated blood loss (mL): 20 Urine output (mL): 0 Blood Pressure: 97/59 SaO2: 93 Pulse Rate: 95 Respiratory Rate: 18 Temperature: 97.1 F Patient is:: Awake Stable to PACU at:: 14:27
--- NOTE | 2021-09-10 15:10 | PC.NURSE ---
1455-detailed report called to TYRONE Aguilar 1457-pt transported to post op via stretcher w/yan rails up and left in care of TYRONE Aguilar with bed locked in lowest position, vss, pt stable
[2021-09-11 09:42] VITALS: BP 109/60; PULSE 90; TEMP 36.2
--- NOTE | 2021-09-11 09:42 | HMH.ANESII ---
[facility] Anesthesia Record Part II Discharge Time: 14:57 Destination: Surgical Day Care (OP Surgery) PACU nurse assessment reviewed?: Yes Patient Condition:: Good Anesthesia Complications:: None Swallowing reflex intact?: Yes Cyanosis?: No Blood Pressure: 109/60 Pulse Rate: 90 Temperature: 97.2 F Mental Status: Alert & Oriented Pain level:: 5 Nausea and/or vomitting:: None Intake, IV Amount: 0
== END 2021-09-10 15:38 | disposition home or self-care (01) ==
LOC: OR 09:36
PROVIDERS: PCP Internal Medicine; Visit Provider Surgery
PROC: 0FT44ZZ Resection of Gallbladder, Percutaneous Endoscopic Approach (ICD-10-PCS; CPT 47562; principal; 2021-09-10 12:15)
DX: I10 Essential (primary) hypertension; E78.5 Hyperlipidemia, unspecified; K80.12 Calculus of gallbladder with acute and chronic cholecystitis without obstruction
CPT/HCPCS: 47562; 96374; J2405

== ENCOUNTER → 2021-10-28 11:57 | Outpatient (CLI) | payer OTHER, SELFPAY ==
[2021-10-28 14:04] LABS: Chloride 107 mmol/L (98-107); Potassium 4.6 mmoL/L (3.5-5.1); Sodium 142 mmol/L (136-145)
[2021-10-28 14:06] LABS: Alanine Aminotransferase 25 U/L (12-78); Albumin Level 4.4 g/dl (3.5-5.0); Albumin/Globulin Ratio 1.5 (1.1-1.8); Alkaline Phosphatase 129 U/L (38-126); Anion Gap 14.6 mEq/L (5-15); Aspartate Amino Transferase 28 U/L (17-59); Bilirubin,Total 0.3 mg/dl (0.2-1.3); Blood Urea Nitrogen 17 mg/dl (9-20); Carbon Dioxide 25 mmol/L (22.0-30.0); Estimated Glomerular Filt Rate 97 ml/min (>60); GFR (African American) 118 ML/MIN (>60); Globulin 2.9 g/dL (1.3-3.2); Total Protein,Serum 7.3 g/dl (6.3-8.2)
[2021-10-28 14:07] LABS: Calcium 9.2 mg/dl (8.4-10.2); Chol/HDL Ratio 3.7 (1-3.5); Cholesterol 115 mg/dl (140-200); Glucose 98 mg/dl (74-100); HDL Cholesterol 31 mg/dl (40-60); Triglycerides 70 mg/dl (30-150); VLDL Cholesterol 14 mg/dL (0-40)
[2021-10-28 15:14] LABS: Prostate Specific Ag Screen 5.9 ng/ml (0.0-4.0)
[2021-10-31 08:33] LABS: Direct LDL Cholesterol 66 mg/dL (100-129)
== END ==
PROVIDERS: PCP Internal Medicine; Visit Provider Internal Medicine
DX: E03.9 Hypothyroidism, unspecified (principal); I10 Essential (primary) hypertension; K21.9 Gastro-esophageal reflux disease without esophagitis; E78.5 Hyperlipidemia, unspecified; Z12.5 Encounter for screening for malignant neoplasm of prostate
CPT/HCPCS: 80053; 80061; 84443; G0103

== ENCOUNTER 2021-12-08 10:21 | Outpatient (CLI) | payer OTHER, SELFPAY ==
[2021-12-08] VITALS (9 sets, daily range): BP systolic 82–119; BP diastolic 45–62; PULSE 60–71; RESP 17–18; TEMP 36.4; O2SAT 95–100; BMI 35.2
[2021-12-08 10:50] LABS: Basophils # 0.1 K/mm3 (0-0.2); Basophils % 1.1 % (0.1-2.0); Eosinophils # 0.3 K/mm3 (0.0-0.4); Eosinophils % 3.1 % (0.1-12.0); Hematocrit 46.5 % (42.0-52.0); Hemoglobin 15.4 g/dL (14.1-18.0); Lymphocytes # 2.6 K/mm3 (0.7-4.5); Lymphocytes % 27.4 % (10-50); Mean Corpuscular HGB Conc 33.1 g/dL (31.8-35.4); Mean Corpuscular Hemoglobin 30.4 pg (27.0-31.2); Mean Corpuscular Volume 91.7 fl (80-94); Mean Platelet Volume 7.8 fl (7.4-10.4); Monocytes # 0.7 K/mm3 (0.1-1.0); Monocytes % 7.6 % (1.7-9.3); Neutrophils # 5.7 K/mm3 (1.8-7.8); Neutrophils % 60.8 % (37.0-80.0); Platelet Count 394 K/mm3 (142-424); Red Blood Count 5.06 M/mm3 (4.60-6.20); White Blood Count 9.3 K/mm3 (4.8-10.8)
[2021-12-08 10:59] LABS: Alanine Aminotransferase 55 U/L (12-78); Albumin Level 4.2 g/dl (3.5-5.0); Albumin/Globulin Ratio 1.3 (1.1-1.8); Alkaline Phosphatase 141 U/L (38-126); Amylase 56 U/L (30-110); Anion Gap 17.9 mEq/L (5-15); Aspartate Amino Transferase 32 U/L (17-59); Bilirubin,Total 0.6 mg/dl (0.2-1.3); Blood Urea Nitrogen 18 mg/dl (9-20); Calcium 8.8 mg/dl (8.4-10.2); Carbon Dioxide 22 mmol/L (22.0-30.0); Chloride 103 mmol/L (98-107); Creatinine Clearance Estimated 69 mL/min (50-200); Estimated Glomerular Filt Rate 44 ml/min (>60); GFR (African American) 53 ML/MIN (>60); Globulin 3.2 g/dL (1.3-3.2); Glucose 106 mg/dl (74-100); Potassium 3.9 mmoL/L (3.5-5.1); Sodium 139 mmol/L (136-145); Total Protein,Serum 7.4 g/dl (6.3-8.2)
--- NOTE | 2021-12-08 11:43 | PC.NURSE ---
1143-called to give pt update to ; new orders for another ns 1 liter bolus.
[2021-12-08 13:17] LABS: Microscopic, Urine URINE MICROSCOPIC (MICROSCOPIC)
[2021-12-08 13:18] LABS: Appearance,Urine SL CLOUDY (Clear); Bilirubin,Urine Negative (Negative); Blood, Urine Negative (Negative); Color,Urine YELLOW (Yellow); Glucose,Urine (UA) Negative (Negative); Ketones,Urine Negative (Negative); Leukocyte Esterase,Urine Negative (Negative); Nitrate,Urine Negative (Negative); Protein,Urine 1+ (Negative); Specific Gravity, Urine 1.015 (1.005-1.030); Urobilinogen,Urine 0.2 EU/dl (0.2)
[2021-12-08 13:46] LABS: Squamous Epithelial Cell,Urine Occasional #/hpf (0-5); WBC,Urine Occasional #/hpf (0-3)
== END 2021-12-08 12:50 | disposition home or self-care (01) ==
LOC: INF 10:22
PROVIDERS: PCP Internal Medicine; Visit Provider Internal Medicine
DX: K52.89 Other specified noninfective gastroenteritis and colitis (principal); E86.0 Dehydration; R03.1 Nonspecific low blood-pressure reading
CPT/HCPCS: 80053; 81001; 82150; 85025; 96360; 96361

== ENCOUNTER → 2022-04-27 12:59 | Outpatient (CLI) | payer OTHER, SELFPAY ==
[2022-04-27 14:48] LABS: Basophils # 0.1 K/mm3 (0-0.2); Basophils % 1.7 % (0.1-2.0); Eosinophils # 0.1 K/mm3 (0.0-0.4); Eosinophils % 1.7 % (0.1-12.0); Hematocrit 44.2 % (42.0-52.0); Hemoglobin 14.6 g/dL (14.1-18.0); Lymphocytes # 2.7 K/mm3 (0.7-4.5); Lymphocytes % 39.6 % (10-50); Mean Corpuscular Hemoglobin 30.2 pg (27.0-31.2); Mean Corpuscular Volume 91.5 fl (80-94); Monocytes # 0.5 K/mm3 (0.1-1.0); Monocytes % 7.2 % (1.7-9.3); Neutrophils # 3.4 K/mm3 (1.8-7.8); Neutrophils % 49.9 % (37.0-80.0); Platelet Count 352 K/mm3 (142-424); Red Blood Count 4.83 M/mm3 (4.60-6.20); Red Cell Distribution Width 13.3 % (11.5-17.5); White Blood Count 6.9 K/mm3 (4.8-10.8)
[2022-04-27 15:04] LABS: Alanine Aminotransferase 27 U/L (12-78); Albumin Level 4.5 g/dl (3.5-5.0); Albumin/Globulin Ratio 1.5 (1.1-1.8); Alkaline Phosphatase 95 U/L (38-126); Aspartate Amino Transferase 30 U/L (17-59); Bilirubin,Total 0.9 mg/dl (0.2-1.3); Blood Urea Nitrogen 16 mg/dl (9-20); Calcium 8.8 mg/dl (8.4-10.2); Carbon Dioxide 24 mmol/L (22.0-30.0); Chloride 109 mmol/L (98-107); Chol/HDL Ratio 4.3 (1-3.5); Cholesterol 133 mg/dl (140-200); Estimated Glomerular Filt Rate 114 ml/min (>60); GFR (African American) 137 ML/MIN (>60); Globulin 3.1 g/dL (1.3-3.2); Glucose 74 mg/dl (74-100); HDL Cholesterol 31 mg/dl (40-60); Sodium 138 mmol/L (136-145); Total Protein,Serum 7.6 g/dl (6.3-8.2); Triglycerides 134 mg/dl (30-150); VLDL Cholesterol 27 mg/dL (0-40)
[2022-04-27 15:15] LABS: Direct LDL Cholesterol 78.94 mg/dL (100-129)
[2022-04-27 15:32] LABS: Anion Gap 9.3 mEq/L (5-15); Potassium 4.3 mmoL/L (3.5-5.1)
[2022-04-27 15:35] LABS: Prostate Specific Ag Screen 6.7 ng/ml (0.0-4.0); Thyroid Stimulating Hormone 1.83 uIU/mL (0.465-4.68)
== END ==
PROVIDERS: PCP Internal Medicine; Visit Provider Internal Medicine
DX: E03.9 Hypothyroidism, unspecified (principal); E78.5 Hyperlipidemia, unspecified; I10 Essential (primary) hypertension; F41.9 Anxiety disorder, unspecified; R97.20 Elevated prostate specific antigen [PSA]; Z12.5 Encounter for screening for malignant neoplasm of prostate
CPT/HCPCS: 80053; 80061; 84443; 85025; G0103

== ENCOUNTER → 2022-06-29 15:24 | Outpatient (CLI) | payer OTHER, SELFPAY ==
--- NOTE | 2022-06-29 15:30 | CT_ITS ---
FINAL REPORT TECHNIQUE: Axial imaging of the head was obtained without contrast. This study was performed with techniques to keep radiation doses as low as reasonably achievable, (ALARA). Individualized dose reduction techniques using automated exposure control or adjustment of mA and/or kV according to the patient''s size were employed. CLINICAL HISTORY: FACIAL WEAKNESS since last night COMPARISON: July 2020 FINDINGS: The ventricles are normal in size. There is no evidence of hemorrhage. No masses are identified. No extra-axial fluid is seen. There is mild mucoperiosteal thickening in the left maxillary sinus. There is no acute osseous abnormality. IMPRESSION: No acute intracranial abnormality. Reviewed, Interpreted and Dictated by Willy Hoover MD Transcribed by Bob Suh Authenticated and [facility]
== END ==
PROVIDERS: PCP Internal Medicine; Visit Provider Internal Medicine
DX: R29.810 Facial weakness (principal)
CPT/HCPCS: 70450

== ENCOUNTER → 2022-10-29 14:05 | Outpatient (CLI) | payer OTHER, SELFPAY ==
[2022-10-29 15:19] LABS: Basophils # 0.1 K/mm3 (0-0.2); Eosinophils # 0.1 K/mm3 (0.0-0.4); Hematocrit 41.9 % (42.0-52.0); Lymphocytes % 39.8 % (10-50); Mean Corpuscular HGB Conc 33.5 g/dL (31.8-35.4); Mean Corpuscular Hemoglobin 30.6 pg (27.0-31.2); Mean Corpuscular Volume 91.4 fl (80-94); Mean Platelet Volume 8.8 fl (7.4-10.4); Monocytes # 0.4 K/mm3 (0.1-1.0); Monocytes % 7.5 % (1.7-9.3); Neutrophils # 2.5 K/mm3 (1.8-7.8); Neutrophils % 49.6 % (37.0-80.0); Platelet Count 336 K/mm3 (142-424); Red Blood Count 4.59 M/mm3 (4.60-6.20); Red Cell Distribution Width 13.1 % (11.5-17.5)
[2022-10-29 16:53] LABS: Chol/HDL Ratio 4.2 (1-3.5); Cholesterol 122 mg/dl (140-200); HDL Cholesterol 29 mg/dl (40-60); Triglycerides 108 mg/dl (30-150); VLDL Cholesterol 22 mg/dL (0-40)
[2022-10-29 17:04] LABS: Direct LDL Cholesterol 72.84 mg/dL (100-129)
[2022-10-29 17:22] LABS: Thyroid Stimulating Hormone 1.38 uIU/mL (0.465-4.68)
[2022-11-02 10:15] LABS: Alanine Aminotransferase 32 U/L (12-78); Albumin Level 3.9 g/dl (3.5-5.0); Albumin/Globulin Ratio 1.3 (1.1-1.8); Alkaline Phosphatase 115 U/L (38-126); Aspartate Amino Transferase 32 U/L (17-59); Bilirubin,Total 0.5 mg/dl (0.2-1.3); Estimated Glomerular Filt Rate 97 ml/min (>60); GFR (African American) 117 ML/MIN (>60); Globulin 3.1 g/dL (1.3-3.2); Glucose 76 mg/dl (74-100)
[2022-11-02 10:16] LABS: Anion Gap 19.1 mEq/L (5-15); Blood Urea Nitrogen 19 mg/dl (9-20); Calcium 8.8 mg/dl (8.4-10.2); Carbon Dioxide 23 mmol/L (22.0-30.0); Chloride 106 mmol/L (98-107); Potassium 4.1 mmoL/L (3.5-5.1); Sodium 144 mmol/L (136-145)
== END ==
PROVIDERS: PCP Internal Medicine; Visit Provider Internal Medicine
DX: E03.9 Hypothyroidism, unspecified (principal); E78.5 Hyperlipidemia, unspecified; I10 Essential (primary) hypertension; K21.9 Gastro-esophageal reflux disease without esophagitis; G51.0 Bell's palsy
CPT/HCPCS: 80048; 80053; 80061; 84443; 85025

== ENCOUNTER 2023-01-06 20:00 | Emergency (ER) | payer OTHER, SELFPAY ==
[2023-01-06 20:11] VITALS: RESP 20; TEMP 36.8; O2SAT 99; BMI 38.0
[2023-01-06 20:16] VITALS: BP 159/106; PULSE 91; RESP 20
--- NOTE | 2023-01-06 20:33 | HMH.EDGENADL ---
Discharge Plan Disposition Patient Disposition: Home, Self-Care Condition: Good Prescriptions Prescriptions: No Action tamsulosin 0.4 mg capsule 0.4 each PO DAILY Patient Comments: TAKE ONE CAPSULE BY MOUTH EVERY DAY omeprazole 40 mg capsule,delayed release(DR/EC) 40 mg PO DAILY atorvastatin [Lipitor] 10 mg tablet 10 mg PO DAILY lisinopril 5 mg tablet 5 mg PO DAILY levothyroxine 125 mcg capsule 125 mcg PO DAILY diazepam 10 mg tablet 10 mg PO DAILY aspirin 81 mg Tablet,Chewable 81 mg PO DAILY Referrals Follow up/Referrals: Toñito Munguia MD [Primary Care Provider] - See instructions Activity Restrictions/Add. Instructions Additional Instructions/Restrictions: You were evaluated in the emergency department today. Avoid blowing your nose. Keep an eye on your blood pressure at home and provide your primary care provider with a log of blood pressures to see if your medication needs to be adjusted. Return to the emergency department for new or worsening symptoms. Clinical Impressions Clinical Impression: Acute anterior epistaxis Instructions Patient Instructions: DI for Nosebleed Discharge ED Provider: Shell Juarez General Adult HPI General Chief complaint: Epistaxis Stated complaint: nose bleed Time Seen by Provider: 01/06/23 20:14 Mode of Arrival: Ambulatory Source of Information: Patient Limitations: No Limitations Description of Symptoms (Recalled from ER Triage Doc. by RN): Patient stated he was wattchng TV when his nose started to bleed, has been going on now for 30 minutes. Patient states he had one prior nose bleed a week ago but the bleeding stopped quickly. Right nare is actively bleeding, with some blood coming from mouth also states the blood is down my throat. History of Present Illness HPI narrative: This patient is a 67-year-old male with a history of hypertension, hyperlipidemia, and hypothyroidism on aspirin presenting to the emergency department for evaluation with concern for right-sided nosebleed. He notes that he had a left-sided nosebleed about a week ago, but it stopped quickly. The right-sided nosebleed started approximately 30 minutes ago while he was on the couch watching TV, but he has not been able to get it to stop. He has been tilting his head back to try and get it to stop, and blood has now been going down his throat and coming out of his mouth. He notes nausea associated with this. No trauma noted. No other concerns noted. He has otherwise been well. No other history of bleeding or bruising. Related Data Home Medications Medication Instructions Recorded Confirmed atorvastatin 10 mg tablet (Lipitor) 10 mg PO DAILY Cholesterol 08/02/17 01/06/23 diazepam 10 mg tablet 10 mg PO DAILY Anxiety 08/02/17 01/06/23 levothyroxine 125 mcg capsule 125 mcg PO DAILY HYPOTHYROIDISM 08/02/17 01/06/23 lisinopril 5 mg tablet 5 mg PO DAILY Hypertension 08/02/17 01/06/23 omeprazole 40 mg capsule,delayed 40 mg PO DAILY GERD 08/21/21 01/06/23 release tamsulosin 0.4 mg capsule 0.4 each PO DAILY bph 08/21/21 01/06/23 aspirin 81 mg chewable tablet 81 mg PO DAILY 01/06/23 01/06/23 Allergies Allergy/AdvReac Type Severity Reaction Status Date / Time No Known Allergies Allergy Unverified 09/23/21 10:26 [facility] Disclaimer: The information contained in this section may have been updated after the patient was seen, as this information can be updated by other users. Medical History Anxiety HTN (hypertension) Hyperlipidemia Surgical History History of back surgery History of cholecystectomy Hx of colonoscopy Hx of knee surgery Family History Other No significant family history Social History Smoking Status: Never sm
--- NOTE | 2023-01-06 21:00 | PC.NURSE ---
bleeding decrease in right nare, direct pressure continues. no vomiting noted
[2023-01-06 21:50] VITALS: BP 128/78; PULSE 80; RESP 18; TEMP 36.8
== END 2023-01-06 21:55 | disposition home or self-care (01) ==
PROVIDERS: Emergency Provider Emergency Medicine; PCP Internal Medicine
DX: R04.0 Epistaxis (principal); R11.0 Nausea; I10 Essential (primary) hypertension; E78.5 Hyperlipidemia, unspecified; E03.9 Hypothyroidism, unspecified; E66.9 Obesity, unspecified
CPT/HCPCS: 99283

== ENCOUNTER 2023-04-27 06:50 | Outpatient (CLI) | payer OTHER, SELFPAY ==
[2023-04-27 07:58] LABS: Chloride 107 mmol/L (98-107)
[2023-04-27 07:59] LABS: Potassium 3.9 mmoL/L (3.5-5.1); Sodium 139 mmol/L (136-145)
[2023-04-27 08:01] LABS: Alanine Aminotransferase 38 U/L (12-78); Albumin Level 4.3 g/dl (3.5-5.0); Albumin/Globulin Ratio 1.4 (1.1-1.8); Alkaline Phosphatase 109 U/L (38-126); Anion Gap 7.9 mEq/L (5-15); Aspartate Amino Transferase 31 U/L (17-59); Bilirubin,Total 0.6 mg/dl (0.2-1.3); Blood Urea Nitrogen 14 mg/dl (9-20); Carbon Dioxide 28 mmol/L (22.0-30.0); Estimated Glomerular Filt Rate 85 ml/min (>60); GFR (African American) 102 ML/MIN (>60); Total Protein,Serum 7.3 g/dl (6.3-8.2)
[2023-04-27 08:02] LABS: Calcium 8.9 mg/dl (8.4-10.2); Chol/HDL Ratio 4.6 (1-3.5); Cholesterol 139 mg/dl (140-200); Glucose 100 mg/dl (74-100); HDL Cholesterol 30 mg/dl (40-60); Triglycerides 152 mg/dl (30-150); VLDL Cholesterol 30 mg/dL (0-40)
[2023-04-27 09:06] LABS: Direct LDL Cholesterol 82.17 mg/dL (100-129)
[2023-04-27 09:27] LABS: Prostate Specific Ag Screen 3.8 ng/ml (0.0-4.0)
== END 2023-04-27 23:59 ==
LOC: LAB 06:52
PROVIDERS: PCP Internal Medicine; Visit Provider Internal Medicine
DX: I10 Essential (primary) hypertension (principal); E03.9 Hypothyroidism, unspecified; F41.9 Anxiety disorder, unspecified; E78.5 Hyperlipidemia, unspecified; K21.9 Gastro-esophageal reflux disease without esophagitis; G51.0 Bell's palsy; Z90.49 Acquired absence of other specified parts of digestive tract; E66.9 Obesity, unspecified; Z68.38 Body mass index [BMI] 38.0-38.9, adult; Z12.5 Encounter for screening for malignant neoplasm of prostate
CPT/HCPCS: 36415; 80053; 80061; G0103

== ENCOUNTER 2023-07-26 13:15 | Outpatient (CLI) | payer OTHER, SELFPAY ==
[2023-07-26 15:59] LABS: Prostate Specific Ag, Diagnost 1.91 ng/ml (0.0-4.0)
== END 2023-07-26 23:59 | disposition home or self-care (01) ==
LOC: LAB.DROPOF 13:15
PROVIDERS: PCP Internal Medicine; Visit Provider Internal Medicine
DX: C61 Malignant neoplasm of prostate (principal)
CPT/HCPCS: 84153

== ENCOUNTER 2023-09-28 11:18 | Outpatient (CLI) | payer MEDICARE, SELFPAY ==
[2023-09-28 11:18] LABS: Basophils # 0.1 K/mm3 (0-0.2); Basophils % 0.9 % (0.1-2.0); Eosinophils # 0.1 K/mm3 (0.0-0.4); Eosinophils % 1.7 % (0.1-12.0); Hematocrit 42.1 % (42.0-52.0); Hemoglobin 14.5 g/dL (14.1-18.0); Lymphocytes # 1.9 K/mm3 (0.7-4.5); Lymphocytes % 34.6 % (10-50); Mean Corpuscular HGB Conc 34.5 g/dL (31.8-35.4); Mean Corpuscular Hemoglobin 31.3 pg (27.0-31.2); Mean Corpuscular Volume 90.7 fl (80-94); Mean Platelet Volume 8.2 fl (7.4-10.4); Monocytes # 0.4 K/mm3 (0.1-1.0); Monocytes % 7.1 % (1.7-9.3); Neutrophils # 3.1 K/mm3 (1.8-7.8); Neutrophils % 55.8 % (37.0-80.0); Platelet Count 281 K/mm3 (142-424); Red Blood Count 4.64 M/mm3 (4.60-6.20); Red Cell Distribution Width 14.4 % (11.5-17.5); White Blood Count 5.6 K/mm3 (4.8-10.8)
[2023-09-28 12:01] LABS: Alanine Aminotransferase 35 U/L (12-78); Albumin Level 4.3 g/dl (3.5-5.0); Albumin/Globulin Ratio 1.4 (1.1-1.8); Alkaline Phosphatase 109 U/L (38-126); Aspartate Amino Transferase 28 U/L (17-59); Bilirubin,Total 0.6 mg/dl (0.2-1.3); Blood Urea Nitrogen 16 mg/dl (9-20); Calcium 9.2 mg/dl (8.4-10.2); Carbon Dioxide 25 mmol/L (22.0-30.0); Chloride 106 mmol/L (98-107); Chol/HDL Ratio 4.4 (1-3.5); Cholesterol 132 mg/dl (140-200); Estimated Glomerular Filt Rate 85 ml/min (>60); GFR (African American) 102 ML/MIN (>60); Globulin 3.1 g/dL (1.3-3.2); Glucose 86 mg/dl (74-100); HDL Cholesterol 30 mg/dl (40-60); Sodium 140 mmol/L (136-145); Total Protein,Serum 7.4 g/dl (6.3-8.2); Triglycerides 116 mg/dl (30-150); VLDL Cholesterol 23 mg/dL (0-40)
[2023-09-28 12:11] LABS: Direct LDL Cholesterol 76.35 mg/dL (100-129)
[2023-09-28 12:31] LABS: Prostate Specific Ag, Diagnost 1.59 ng/ml (0.0-4.0); Thyroid Stimulating Hormone 2.16 uIU/mL (0.465-4.68)
== END 2023-09-28 23:59 | disposition home or self-care (01) ==
LOC: LAB.DROPOF 11:18
PROVIDERS: PCP Internal Medicine; Visit Provider Internal Medicine
DX: I10 Essential (primary) hypertension (principal); E78.5 Hyperlipidemia, unspecified; E03.9 Hypothyroidism, unspecified; C61 Malignant neoplasm of prostate
CPT/HCPCS: 80050; 80053; 80061; 84153; 84443; 85025

== ENCOUNTER 2024-03-06 11:57 | Outpatient (CLI) | payer MEDICARE, OTHER, MEDICAID, SELFPAY ==
[2024-03-06 12:34] LABS: Basophils # 0.1 K/mm3 (0-0.2); Basophils % 0.8 % (0.1-2.0); Eosinophils # 0.1 K/mm3 (0.0-0.4); Eosinophils % 2.2 % (0.1-12.0); Hematocrit 42.9 % (42.0-52.0); Hemoglobin 14.6 g/dL (14.1-18.0); Lymphocytes # 1.8 K/mm3 (0.7-4.5); Lymphocytes % 29.9 % (10-50); Mean Corpuscular Hemoglobin 29.1 pg (27.0-31.2); Mean Corpuscular Volume 85.6 fl (80-94); Mean Platelet Volume 9.9 fl (7.4-10.4); Monocytes # 0.5 K/mm3 (0.1-1.0); Monocytes % 8.2 % (1.7-9.3); Neutrophils # 3.5 K/mm3 (1.8-7.8); Neutrophils % 58.6 % (37.0-80.0); Platelet Count 349 K/mm3 (142-424); Red Blood Count 5.01 M/mm3 (4.60-6.20)
[2024-03-06 12:56] LABS: Alanine Aminotransferase 30 U/L (12-78); Albumin Level 4.6 g/dl (3.5-5.0); Albumin/Globulin Ratio 1.6 (1.1-1.8); Alkaline Phosphatase 111 U/L (38-126); Anion Gap 15.2 mEq/L (5-15); Aspartate Amino Transferase 31 U/L (17-59); Bilirubin,Total 0.7 mg/dl (0.2-1.3); Blood Urea Nitrogen 14 mg/dl (9-20); Calcium 9.5 mg/dl (8.4-10.2); Carbon Dioxide 25 mmol/L (22.0-30.0); Chloride 104 mmol/L (98-107); Chol/HDL Ratio 4.4 (1-3.5); Cholesterol 127 mg/dl (140-200); Estimated Glomerular Filt Rate 84 ml/min (>60); GFR (African American) 102 ML/MIN (>60); Globulin 2.8 g/dL (1.3-3.2); Glucose 88 mg/dl (74-100); HDL Cholesterol 29 mg/dl (40-60); Potassium 4.2 mmoL/L (3.5-5.1); Sodium 140 mmol/L (136-145); Total Protein,Serum 7.4 g/dl (6.3-8.2); Triglycerides 112 mg/dl (30-150); VLDL Cholesterol 22 mg/dL (0-40)
[2024-03-06 13:26] LABS: Prostate Specific Ag, Diagnost 0.525 ng/ml (0.0-4.0); Thyroid Stimulating Hormone 1.89 uIU/mL (0.465-4.68)
== END 2024-03-06 23:59 | disposition home or self-care (01) ==
LOC: LAB.DROPOF 11:58
PROVIDERS: PCP Internal Medicine; Visit Provider Internal Medicine
DX: E03.9 Hypothyroidism, unspecified (principal); I10 Essential (primary) hypertension; C61 Malignant neoplasm of prostate; E78.5 Hyperlipidemia, unspecified
CPT/HCPCS: 80053; 80061; 84153; 84443; 85025

== ENCOUNTER 2024-06-14 14:11 | Outpatient (CLI) | payer MEDICARE, OTHER, MEDICAID, SELFPAY ==
--- NOTE | 2024-06-14 14:00 | CT_ITS ---
FINAL REPORT TECHNIQUE: Axial images through the abdomen and pelvis were performed without contrast. Coronal and sagittal reconstructed images were also obtained and reviewed. This study was performed with techniques to keep radiation doses as low as reasonably achievable, (ALARA). Individualized dose reduction techniques using automated exposure control or adjustment of mA and/or kV according to the patient's size were employed. CLINICAL HISTORY: Gross hematuria COMPARISON: 08/18/2021 FINDINGS: Abdomen: There is chronic scarring at the lung bases. There is moderate fatty infiltration of the liver. The gallbladder is present. The spleen, pancreas, adrenals and kidneys are unremarkable. There is moderate descending sigmoid diverticulosis without diverticulitis. Pelvis: The urinary bladder is unremarkable without evidence of bladder stones. The appendix is not visualized. There is no pelvic mass or inflammation. There are some fiducial markers in the prostate. IMPRESSION: No evidence of kidney stone or obstruction. Sigmoid diverticulosis without diverticulitis. Reviewed, Interpreted and Dictated by Willy Hoover MD Transcribed by Lidia aPlomo Authenticated and . [facility]
--- OUTSIDE RECORDS SUMMARY | 2024-06-14 14:15 | XMS_ITS | Data Portability ---
Author Organization [facility] ZA Garibay MODESTO CLOSED Address [address] [facility] [facility] [address] [place] [address] Care Team Providers Care Power Technician Name Role Phone JAREN RAPHAEL Primary Care Provider [phone] Assessment Encounter Date Assessment Date Assessment LastModified by Organization Details LastModified Time 10/13/2022 10/13/2022 PREOPERATIVE DIAGNOSIS: Elevated PSA. POSTOPERATIVE DIAGNOSIS: Elevated PSA. PROCEDURE: Transrectal ultrasound and needle biopsy of the prostate. SURGEON: David Bolden MD ANESTHESIA: Local MAC. INDICATIONS: Patient recently has had elevated PSA. Despite antibiotics, his PSA came down slightly, but still at 7.2. We decided to proceed with transrectal ultrasound and needle biopsy of the prostate. He is taking his antibiotics. OPERATIVE NOTE: After satisfactory sedation, in left lateral decubitus position, probe was placed per rectum. Volume was calculated to be 15 mL. Internal echogenic pattern was unremarkable. Standard prostatic block was performed. He had 6 biopsies from each side of the prostate, 3 medially and 3 lateral from the base down to apex. The patient tolerated the procedure well. We will contact him with the results. [id number] Not available 10/14/2022 18:38:39 Plan of Treatment Reminders Order Date Submit Date Provider Last Modified By Organization Details Last Modified Time Details Appointments None recorded. Lab urinalysis panel, auto [email or web address] [place] [address] Urology [facility], [address] [facility], [address], [place], [address], 3 13:56:43 PSA, serum or plasma [address] [facility], [address], [address], [place], [address], 3 13:56:43 PSA, serum or plasma [address] [facility], [address], [address], [place], [address], 3 11:58:12 urinalysis panel, auto [address] [facility], [address], [address], [place], [address], 3 21:07:54 PSA, serum or plasma [address] [facility], [address], [address], [place], [address], 3 21:07:54 Referral None recorded. Procedures None recorded. Surgeries prostate needle biopsy (SURG) 2022 023 [id number] [facility], [address], [address], [place], [address], 3 13:04:09 Imaging None recorded. Medication Orders levofloxaci n 750 mg tablet 2022 023 [facility], [address] [place] [address], [id number], 3 15:02:57 cefuroxime axetil 500 mg tablet 2022 023 [facility], [address] [place] [address] [address] [facility], [place], [id number], 16:21:14 Patient TargetsNo targets recorded. Patient InstructionsNo instructions recorded. Reason for Referral None Reported. Results Created Date Observation Date Name Description Value Unit Range Abnormal Flag Note LastModifiedBy Organization Detail LastModifiedTime 05/25/19 23 05/24/2022 PSA, serum or plasm a PSA 8.3 NG/mL 0.0 - 4.0 Not Available [facility] [address], [place], [address], 05/24/2022 17:25:49 05/25/19 23 05/24/2022 urina lysis panel , auto Unknown Analyte Clean Catch Not Available [facility] [address], [place], [address], 05/24/2022 17:23:08 05/25/19 23 05/24/2022 urina lysis panel , auto Unknown Analyte Yellow Not Available [facility] [address], [place], [address], 05/24/2022 17:23:08 05/25/19 23 05/24/2022 urina lysis panel , auto Unknown Analyte Clear Not Available [facility] [address], [place], [address], 05/24/2022 17:23:08 05/25/19 23 05/24/2022 urina lysis panel , auto Unknown Analyte 1.015 Not Available [facility] [address], [place], [address], 05/24/2022 17:23:08 05/25/19 23 05/24/2022 urina lysis panel , auto Unknown Analyte 1.003- 1.035 Not Available [facility] [address], [place], [address], 05/24/2022 17:23:08 05/25/19 23 05/24/2022 urina lysis panel , auto Unknown Analyte 5.0 Not Available [facility] [address], [place], [address], 05/24/2022 17:23:08 05/25/19 23 05/24/2022 urina lysis panel , auto Unknown Analyte 5.0-8. 0 Not Available [facility] [address], [place], [address], 05/24/2022 17:23:08 05/25/19 23 05/24/2022 urina lysis panel , auto Unknown Analyte Negati ve Not Available [facility] [address], [place], [address], 05/24/2022 17:23:08 05/25/19 23 05/24/2022 urina lysis panel , auto Unknown Analyte Negati ve Not Available [facility] [address], [place], [address], 05/24/2022 17:23:08 05/25/19 23 05/24/2022 urina lysis panel , auto Unknown Analyte Negati ve Not Available [facility] [address], [place], [address], 05/24/2022 17:23:08 05/25/19 23 05/24/2022 urina lysis panel , auto Unknown Analyte Negati ve Not Available [facility] [address], [place], [address], 05/24/2022 17:23:08 05/25/19 23 05/24/2022 urina lysis panel , auto Unknown Analyte Negati ve Not Available [facility] [address], [place], [address], 05/24/2022 17:23:08 05/25/19 23 05/24/2022 urina lysis panel , auto Unknown Analyte Negati ve Not Available [facility] [address], [place], [address], 05/24/2022 17:23:08 05/25/19 23 05/24/2022 urina lysis panel , auto Unknown Analyte Normal Not Available [facility] [address], [place], [address], 05/24/2022 17:23:08 05/25/19 23 05/24/2022 urina lysis panel , auto Unknown Analyte Normal Not Available [facility] [address], [place], [address], 05/24/2022 17:23:08 05/25/19 23 05/24/2022 urina lysis panel , auto Unknown Analyte Negati ve Not Available [facility] [address], [place], [address], 05/24/2022 17:23:08 05/25/19 23 05/24/2022 urina lysis panel , auto Unknown Analyte Negati ve Not Available [facility] [address], [place], [address], 05/24/2022 17:23:08 05/25/19 23 05/24/2022 urina lysis panel , auto Unknown Analyte Normal Not Available [facility] [address], [place], [address], 05/24/2022 17:23:08 05/25/19 23 05/24/2022 urina lysis panel , auto Unknown Analyte Normal 1 mg/dl Not Available [facility] [address], [place], [address], 05/24/2022 17:23:08 05/25/19 23 05/24/2022 urina lysis panel , auto Unknown Analyte Negati ve Not Available [facility] [address], [place], [address], 05/24/2022 17:23:08 05/25/19 23 05/24/2022 urina lysis panel , auto Unknown Analyte Negati ve Not Available [facility] [address], [place], [address], 05/24/2022 17:23:08 05/25/19 23 05/24/2022 urina lysis panel , auto Unknown Analyte Negati ve Not Available [facility] [address], [place], [address], 05/24/2022 17:23:08 05/25/19 23 05/24/2022 urina lysis panel , auto Unknown Analyte Negati ve Not Available [facility] [address], [place], [address], 05/24/2022 17:23:08 06/26/19 23 06/25/2022 PSA, serum or plasm a PSA 7.2 NG/mL 0.0 - 4.0 Not Available [facility] [address], [place], [address], 06/25/2022 11:12:33 09/28/19 23 09/27/2022 PSA, serum or plasm a PSA 7.5 NG/mL 0.0 - 4.0 Not Available [facility] [address], [place], [address], 09/27/2022 17:11:08 09/28/19 23 09/27/2022 urina lysis panel , auto Unknown Analyte Clean Catch Not Available [facility] [address], [place], [address], 09/27/2022 17:10:01 09/28/19 23 09/27/2022 urina lysis panel , auto Unknown Analyte Yellow Not Available [facility] [address], [place], [address], 09/27/2022 17:10:01 09/28/19 23 09/27/2022 urina lysis panel , auto Unknown Analyte Clear Not Available [facility] [address], [place], [address], 09/27/2022 17:10:01 09/28/19 23 09/27/2022 urina lysis panel , auto Unknown Analyte 1.020 Not Available [facility] [address], [place], [address], 09/27/2022 17:10:01 09/28/19 23 09/27/2022 urina lysis panel , auto Unknown Analyte 1.003- 1.035 Not Available [facility] [address], [place], [address], 09/27/2022 17:10:01 09/28/19 23 09/27/2022 urina lysis panel , auto Unknown Analyte 5.0 Not Available [facility] [address], [place], [address], 09/27/2022 17:10:01 09/28/19 23 09/27/2022 urina lysis panel , auto Unknown Analyte 5.0-8. 0 Not Available [facility] [address], [place], [address], 09/27/2022 17:10:01 09/28/19 23 09/27/2022 urina lysis panel , auto Unknown Analyte Negati ve Not Available [facility] [address], [place], [address], 09/27/2022 17:10:01 09/28/19 23 09/27/2022 urina lysis panel , auto Unknown Analyte Negati ve Not Available [facility] [address], [place], [address], 09/27/2022 17:10:01 09/28/19 23 09/27/2022 urina lysis panel , auto Unknown Analyte Negati ve Not Available [facility] [address], [place], [address], 09/27/2022 17:10:01 09/28/19 23 09/27/2022 urina lysis panel , auto Unknown Analyte Negati ve Not Available [facility] [address], [place], [address], 09/27/2022 17:10:01 09/28/19 23 09/27/2022 urina lysis panel , auto Unknown Analyte Negati ve Not Available [facility] [address], [place], [address], 09/27/2022 17:10:01 09/28/19 23 09/27/2022 urina lysis panel , auto Unknown Analyte Negati ve Not Available [facility] [address], [place], [address], 09/27/2022 17:10:01 09/28/19 23 09/27/2022 urina lysis panel , auto Unknown Analyte Normal Not Available [facility] [address], [place], [address], 09/27/2022 17:10:01 09/28/19 23 09/27/2022 urina lysis panel , auto Unknown Analyte Normal Not Available [facility] [address], [place], [address], 09/27/2022 17:10:01 09/28/19 23 09/27/2022 urina lysis panel , auto Unknown Analyte Negati ve Not Available [facility] [address], [place], [address], 09/27/2022 17:10:01 09/28/19 23 09/27/2022 urina lysis panel , auto Unknown Analyte Negati ve Not Available [facility] [address], [place], [address], 09/27/2022 17:10:01 09/28/19 23 09/27/2022 urina lysis panel , auto Unknown Analyte Normal Not Available [facility] [address], [place], [address], 09/27/2022 17:10:01 09/28/19 23 09/27/2022 urina lysis panel , auto Unknown Analyte Normal 1 mg/dl Not Available [facility] [address], [place], [address], 09/27/2022 17:10:01 09/28/19 23 09/27/2022 urina lysis panel , auto Unknown Analyte Negati ve Not Available [facility] [address], [place], [address], 09/27/2022 17:10:01 09/28/19 23 09/27/2022 urina lysis panel , auto Unknown Analyte Negati ve Not Available [facility] [address], [place], [address], 09/27/2022 17:10:01 09/28/19 23 09/27/2022 urina lysis panel , auto Unknown Analyte Negati ve Not Available [facility] [address], [place], [address], 09/27/2022 17:10:01 09/28/19 23 09/27/2022 urina lysis panel , auto Unknown Analyte Negati ve Not Available [facility] [address] [facility] [address], [place], [address], 09/27/2022 17:10:01 10/14/19 23 10/13/2022 SURGI MAUREEN surgical SEE BELOW abnormal Depar tment of Patho logy Surgi maureen Patho logy Repor t NAME: KRISTEL ACUNA PATH. 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 Entir donnie submi tted in 2 casse ttes. B) Recei benjamin in forma ronaldo label ed with the patie nt's name and desig nated as righ t prost ate biops y are 6 thin cores of dodge-w bud tissu e measu ring (3) 1.7, (2) 1.8 and 2.0 cm in lengt h. Entir donnie submi tted in 2 casse ttes. JAB 10/13 02:06 PM Micro scopi c Descr iptio n: A) Secti ons show multi ple cores of prost ate tissu e invol benjamin by prost atic adeno carci noma. PIN4 immun ohist ochem ical stain confi arcadio prost atic adeno carci noma with a prope rly worki ng contr ol. Tumor shows stron gly posti ve [place] ase stain ing and negat jairo stain ing with p63/H igh molec ular weigh t cytok erati n on block A2. B) Speci men B shows multi ple cores of prost ate tissu e with rare atypi maureen acini . PIN4 immun ohist ochem ical stain s are negat jairo for prost atic adeno carci noma. Immun ohist ochem ical stain s revie wed with a prope rly worki ng contr ol. This test was devel oped and its perfo rmanc e arvind cteri stics deter mined by the [employer] [facility] Patho logy Depar tment . It has not been clear ed or appro benjamin by the [place] Food and Drug Admin istra tion (FDA) . The FDA has deter mined that such clear ance or appro rinku is not neces markus. These tests are used solel y for clini maureen purpo ses. They shoul d not be regar ded as inves tigat ional or for resea rch. This labor atory is regul ated under the Clini maureen Labor atory Impro vemen t Amend ments of 1987 (CLIA ' 88), as quali fied to perfo rm high compl exity testi ng. KRZYSZTOF BELTRAN MD Rosalia d Out Date: 10/15 18:21 Page 1 of 1 Not Available [facility] [address] [place], [address], 10/15/2022 18:21:23 Result Notes None recorded. Problems No Known Problems Procedures Surgical History Date Name Laterality Status Provider Name and Address Organization Details Recorded Time 08/29/19 22 Cholecystectomy completed Flory Pool [facility] 11/24/2021 16:26:43 Imaging Results None recorded. Procedure Notes None recorded. Medical Equipment None Reported. Allergies No known drug allergies Medications Name Sig Start Date Stop Date Status Note LastModified by Organization Details LastModified Time tamsulosin 0.4 mg capsule TAKE ONE CAPSULE BY MOUTH EVERY DAY 2020 active Not Available Not Available Not Avai lable cefuroxime axetil 500 mg tablet Take 1 tablet every 12 hours by oral route. 2022 active Not Available Not Available Not Avai lable levofloxaci n 750 mg tablet Take 1 tablet every day by oral route. 2022 active Not Available Not Available Not Avai lable sildenafil (pulmonary hypertensio n) 20 mg tablet TAKE 1 TO 2 TABLET(S) BY MOUTH EVERY DAY NEEDED DIRECTED 05/24 completed Not Available Not Available Not Available atorvastati n active Not Available Not Available Not Available aspirin active Not Available Not Avail able Not Available levothyroxi ne active Not Available Not Available Not Available omeprazole active Not Available Not Av ailable Not Available lisinopril active Not Available Not Av ailable Not Available Valium 2 daily active Not Available Not Avail able Not Available Tylenol PM prn active Not Available Not Av ailable Not Available Vitals Date Recorded Body height Provider Name an d Address Organization Details Last Updated DateTime 05/24/2022 172.72 cm DAVID BOLDEN MD [address] [place] [address], [address] 05/24/2022 16:08:15 Date Recorded Body mass index (BMI) Body weight Provider Name and Address Organization Details Last Updated DateTime 05/24/2022 38 kg/m2 738007.09 g Sadasowmya Hope [facility] 05/24/2022 17:21:55 Date Recorded Body height Body mass index (BMI) Body weight Provider Name and Address Organization Details Last Updated DateTime 06/25/2022 172.72 cm 38 kg/m2 861368.09 g Kathia Jackson [facility] 06/25/2022 11:12:19 Date Recorded Body height Body mass index (BMI) Body weight Provider Name and Address Organization Details Last Updated DateTime 09/27/2022 172.72 cm 38.5 kg/m2 192091.87 g Briseida May [facility] 09/27/2022 17:09:40 Date Recorded Body height Provider Name an d Address Organization Details Last Updated DateTime 10/19/2022 172.72 cm Marjorie Baileypherd [facility] 10/19/2022 16:05:14 Social History Question Answer Notes LastModified by Organizat ion Details LastModified Time Tobacco Smoking Status Never Smoker [facility] 10/19/2019 16:15:41 What Is Your Level Of Alcohol Consumption? Occasional Information not available 10/19/2019 How Much Tobacco Do You Chew? None Information not available 10/19/2019 Do You Or Have You Ever Used E-cigarettes Or Vape? Never Used Electronic Cigarettes Information not available 10/19/2019 What Was The Date Of Your Most Recent Tobacco Screening? 11/24/2021 Information not available 11/24/2021 Sex: Unknown Functional Status None recorded. Mental Status None recorded. Family History Relationship Description Onset Age of this Age Resolved Age Notes LastModified by Organization Details LastModified Time Father No current problems or disability Not available 10/18 16:15:31 Mother No current problems or disability Not available 10/18 16:15:31 Medical History Condition Response Sleep Apnea Y Thyroid Disorder Y Past Encounters Encounter ID Performer Location Encounter Start Date Encounter Closed Date Diagnosis/Indication Diagnosis SNOMED-CT Code Diagnosis ICD10 Code Diagnosis Note [id number] MD LYDIA DAHL [facility] [address] [place] [address] 10/19/2019 15:40:34 10/19/2019 16:17:45 Benign prostatic hyperplasia with outflow obstruction 959896933 N40.1 continue tamsulosin Prostate s pecific antigen above reference range 049061591 R97.20 follow-up 6 months with PSA Primary er ectile dysfunction 647404402 N52.9 he will contact us when he needs refills of sildenafil and we will send it to clinic pharmacy in [place] [id number] MD LYDIA DAHL [facility] [address] [place] [address] 11/24/2021 15:04:40 11/24/2021 16:48:24 Prostate specific antigen above reference range 956923372 R97.20 follow-up 6 months with PSA [id number] DAVID BOLDEN MD [facility] [address] [address] 05/24/2022 14:20:59 05/24/2022 16:17:51 Prostate specific antigen above reference range 065557323 R97.20 follow-up 1 month with PSA Chronic prostatitis 1990 5009 N41.1 As above [id number] DAVID BOLDEN MD [facility] [address] [place] [address] 06/25/2022 10:44:49 06/25/2022 11:47:24 Prostate specific antigen above reference range 953124894 R97.20 follow-up3 month with PSA [id number] DAVID BOLDEN MD [facility] [address] [place] [id number] 09/27/2022 15:28:19 11/09/2022 14:01:03 Prostate specific antigen above reference range 893913452 R97.20 As above [id number] DAVID BOLDEN MD SURGERY SCHEDULE [address] [place] [address] 10/13/2022 06:36:59 10/13/2022 06:37:16 [id number] DAVID BOLDEN MD [facility] [address] [place] [id number] 10/19/2022 15:36:15 10/19/2022 16:44:41 Malignant tumor of prostate 531499932 C61 As above Health Concerns Section Related Observation LastModified by Organization Detai ls LastModified Time None Recorded Concern Status LastModified by Organization Details LastModified Time None Recorded Advance Directives Directive None Recorded Payers Encounter Date Sequence Insurance Name Policy Number Policy Licea Covered Member ID Licea Member ID Guarantor Name 05/24/2022 1 [employer]) [id number] Ruben Mooney [id number] Ruben Mooney 06/25/2022 1 [employer] [id number] Ruben Mooney [id number] Ruben Wilhelmsoila 09/27/2022 1 [employer] [id number] Ruben Olvera Vinicio [id number] Ruben Mooney 10/13/2022 1 [place] [employer] [employer] [id number] Ruben Wilhelmsoila [id number] Ruben Wilhelmsoila 10/19/2022 1 [place] [employer] [employer]) [id number] Ruben Olvera Vinicio [id number] Ruben Mooney Notes Date Note Type Note Provider Name and Address Organization Details Recorded Time 05/24/2022 text/html Patient is here in follow-up 6 months from mildly elevated and fluctuating PSA. In the past his PSA elevation did respond to antibiotic therapy. Previously his PSA has been as high as 6.6 in January 2020 and then down to 4.8 after antibiotic therapy. He continues to take tamsulosin. He typically has nocturia x1-2. PSA today was 8.3. We discussed antibiotic therapy and repeating his PSA DAVID BOLDEN MD [address] [place] [address], [phone], [facility] 05/24/2022 21:08:24 06/25/2022 text/html Patient is here in follow-up of mildly elevated and fluctuating PSA. He was seen 1 month ago his PSA was 8.3 and we like to place him on antibiotics. PSA today is down to 7.2. He did notice some improved voiding pattern. We discussed whether to proceed with needle biopsy versus observation. He will return in 3 months for repeat PSA. DAVID BOLDEN MD [address] [place] [address] [place], [phone], [facility] 06/25/2022 11:58:29 09/27/2022 text/html Patient is here in follow-up of elevated PSA. Earlier this year he was placed on antibiotics for PSA of 8.3. Follow-up his PSA was down to 7.2. His PSA today was 7.5. This returned after he left the office. I suggest with the persistently elevated PSA that he consider transrectal ultrasound needle biopsy of the prostate DAVID BOLDEN MD [facility] [place], [phone], [facility] 10/09/2022 13:57:08 10/19/2022 text/html Patient is here with his to discuss recent positive needle biopsy of the prostate. His prebiopsy PSA was 7.2. Right side was all benign. On the left side he had 5 of 6 cores positive for Lex score of 7. We discussed treatment options. We discussed radiation therapy. We discussed robotic prostatectomy. Each was discussed in detail. We discussed surgery including risk of bleeding and infection. We discussed the possibility of postoperative urinary incontinence as well as erectile dysfunction. We discussed convalescence. Considering his multiple cores being positive I would suggest more favorably surgery. He will be consulted with radiation oncology for further information. We will notify me of his decision. DAVID BOLDEN MD [facility] [place], [phone], [facility] 10/19/2022 20:59:03
--- OUTSIDE RECORDS SUMMARY | 2024-06-14 14:15 | XMS_ITS ---
Author Organization Unknown TREATMENT PLAN [facility] Start Date Provider Encounter for Check-up [id number] [facility]
== END 2024-06-14 23:59 | disposition home or self-care (01) ==
PROVIDERS: PCP Internal Medicine; Visit Provider Internal Medicine
DX: R31.0 Gross hematuria (principal); C61 Malignant neoplasm of prostate
CPT/HCPCS: 74176

== ENCOUNTER 2024-08-13 11:10 | Emergency (ER) | payer MEDICARE, OTHER, SELFPAY ==
--- NOTE | 2024-08-13 11:21 | CT_ITS ---
FINAL REPORT TECHNIQUE: Thin section axial images were obtained through the neck after contrast administration per CT angiogram protocol. Multiplanar reconstruction images were obtained from the axial data. Exam was performed using dose reduction technique. NASCET technique utilized for stenosis evaluation. CLINICAL HISTORY: horizontal diplopia, intermittent RAY COMPARISON: None FINDINGS: RIGHT CAROTID: Mild vascular calcification proximal right internal carotid artery. No significant stenosis. LEFT CAROTID: Bifurcation widely patent. VERTEBRALS: Vertebral arteries are patent. Left vertebral artery is dominant. No significant stenosis is present. IMPRESSION: No significant arterial abnormality. Reviewed, Interpreted and Dictated by Willy Hoover MD Transcribed by Amina Peng Authenticated and [facility]
--- NOTE | 2024-08-13 11:21 | CT_ITS ---
FINAL REPORT TECHNIQUE: Axial images through the brain were performed after the administration of IV contrast. Coronal reconstructions were submitted. This study was performed with techniques to keep radiation doses as low as reasonably achievable (ALARA). Individualized dose reduction techniques using automated exposure control or adjustment of mA and/or kV according to the patient's size were employed. CLINICAL HISTORY: horizontal diplopia, intermittent RAY COMPARISON: None FINDINGS: The superior sagittal sinus is patent. The transverse sinus is patent. The sigmoid sinus is patent. Internal cerebral vessels are patent. IMPRESSION: No acute intracranial process. Reviewed, Interpreted and Dictated by Willy Hoover MD Transcribed by Amina Peng Authenticated and [facility]
--- NOTE | 2024-08-13 11:21 | CT_ITS ---
FINAL REPORT TECHNIQUE: Axial CT images were performed through the head. Coronal reformatted images were submitted. This study was performed with techniques to keep radiation doses as low as reasonably achievable (ALARA). Individualized dose reduction techniques using automated exposure control or adjustment of mA and/or kV according to the patient's size were employed. CLINICAL HISTORY: horizontal diplopia, intermittent RAY COMPARISON: 06/29/2022 FINDINGS: The ventricles are normal in size. There is no evidence of hemorrhage. There is no mass or edema identified. There is no abnormal extra-axial fluid seen. There is lobular mucoperiosteal thickening in both maxillary sinuses. No air-fluid levels are seen. IMPRESSION: No acute intracranial process. Chronic bilateral maxillary sinusitis. Reviewed, Interpreted and Dictated by Willy Hoover MD Transcribed by Amina Peng Authenticated and [facility]
--- NOTE | 2024-08-13 11:21 | CT_ITS ---
FINAL REPORT TECHNIQUE: thin section axial CT with and without IV contrast supplemented with multiplanar 3-D reconstruction of the head. This study was performed with techniques to keep radiation doses as low as reasonably achievable, (ALARA)individualized dose reduction techniques using automated exposure control or adjustment of mA and/or kV according to the patient's size were employed. CLINICAL HISTORY: horizontal diplopia, intermittent RAY COMPARISON: None FINDINGS: There is a dominant left A1 segment. The right A1 segment is absent. No segmental stenosis is noted. There is no evidence of aneurysm. Tortuosity is noted of the basilar artery. IMPRESSION: Dominant left A1 segment. Tortuous basilar artery. Reviewed, Interpreted and Dictated by Willy Hoover MD Transcribed by Amina Peng Authenticated and . [facility]
--- NOTE | 2024-08-13 11:22 | PC.NURSE ---
Paatients Manual BP is 170/92.
--- NOTE | 2024-08-13 11:22 | HMH.EDGENADL ---
Discharge Plan Disposition Patient Disposition: Xfer Short-Term Hosp Prescriptions Prescriptions: No Action tamsulosin 0.4 mg capsule 0.4 mg PO BID Patient Comments: TAKE ONE CAPSULE BY MOUTH twice a day sildenafil (pulm.hypertension) 20 mg tablet 20 mg PO DAILY Patient Comments: TAKE ONE TABLET BY MOUTH EVERY DAY NEEDED take 3 tablets DIRECTED as necessary prednisone 10 mg tablet 10 mg PO DIRECTED Qty: 32 0RF Rx Instructions: see taper instructions: 4 tabs po qam x 5 days; 3 tabs po qam x 2 days; 2 tabs po qam x 2 days; 1 tab po qam x 2 days; then stop cyclobenzaprine 5 mg tablet 5 mg PO HS Qty: 30 1RF ibuprofen 800 mg tablet 800 mg PO TID PRN (Reason: pain) Qty: 90 1RF Rx Instructions: Take with food or meal atorvastatin [Lipitor] 10 mg tablet 10 mg PO DAILY Qty: 90 1RF omeprazole 40 mg capsule,delayed release(DR/EC) 40 mg PO DAILY Qty: 90 1RF lisinopril 20 mg tablet 20 mg PO DAILY Qty: 90 1RF diazepam 10 mg tablet 10 mg PO BID Qty: 60 2RF levothyroxine 125 mcg tablet 125 mcg PO DAILY Qty: 90 1RF aspirin 81 mg Tablet,Chewable 81 mg PO DAILY Referrals Follow up/Referrals: Toñito Munguia MD [Primary Care Provider, Medical] - See instructions Clinical Impressions Clinical Impression: Diplopia Print Language Print Language: [place] Discharge ED Provider: Ananth Ortega General Adult HPI General Chief complaint: Neuro Symptoms/Deficit Stated complaint: stroke symptoms- dr munguia Time Seen by Provider: 08/13/24 11:14 History of Present Illness HPI narrative: Patient is a 68-year-old male with hypertension, hyperlipidemia, hypothyroidism who presents emergency department for evaluation of double vision. He presented to his PCP today after he has had horizontal double vision since 3:30 PM yesterday who immediately referred him here for continued evaluation. No trauma, no extremity weakness, no difficulty swallowing or difficulty speaking no chest pain reported. No other acute complaints at this time. Please note that above description of symptoms, in this electronic medical record under categorization of recalled from ER triage doctor by RN are reflective of an initial nursing assessment, however, is not reflective of my full history and physical exam that was personally taken and clarified. Consequentially, this preceding description of symptoms, which may include the patient's categorized chief complaint in the EMR, do not reflect my personal clinical impression, and the ultimate description of history of present illness and patient stated complaints should be deferred to this section of the note. Unless stated otherwise or congruent with this section of the note, additional signs, symptoms, or incongruence should be interpreted as inaccurate with my clinical impression. Related Data Home Medications ?Medication ?Instructions ?Recorded ?Confirmed aspirin 81 mg chewable tablet 81 mg PO DAILY 01/06/23 08/13/24 sildenafil (pulm.hypertension) 20 20 mg PO DAILY 09/28/23 08/13/24 mg tablet tamsulosin 0.4 mg capsule 0.4 mg PO BID bph 09/28/23 08/13/24 Previous Rx's ?Medication ?Instructions ?Recorded prednisone 10 mg tablet 10 mg PO DIRECTED #32 tabs 11/07/23 atorvastatin 10 mg tablet (Lipitor) 10 mg PO DAILY Cholesterol #90 tabs 04/03/24 omeprazole 40 mg capsule,delayed 40 mg PO DAILY GERD #90 caps 04/03/24 release cyclobenzaprine 5 mg tablet 5 mg PO HS #30 tabs 05/16/24 ibuprofen 800 mg tablet 800 mg PO TID PRN pain #90 tabs 05/16/24 lisinopril 20 mg tablet 20 mg PO DAILY #90 tabs 06/13/24 diazepam 10 mg tablet 10 mg PO BID #60 tabs 07/02/24 levothyroxine 125 mcg tablet 125 mcg PO DAILY #90 tabs 07/02/24 Allergies Allergy/AdvReac Type Severity Reaction Status Date / Time No Known Allergies Allergy Verified 08/13/24 10:44 [facility] Disclaimer: The information contained in this section may have been updated after the patient was seen, as this information can be updated by other users. Medical History Anxiety Hyperlipidemia HTN (hypertension) Surgical History Hx of knee surgery History of back surgery Hx of colonoscopy History of cholecystectomy Family History Other No significant family history Social History Smoking Status: Never smoker alcohol intake: current alcohol intake frequency: holidays/special occasions only substance use type: denies use current occupational status: employed Travel in the last 8 weeks?: None household members: spouse housing: house caffeine: Yes Have you lived/traveled outside US in past 30 days?: No Contact w/someone who lives/traveled outside US past 30 days?: No Exposure to someone with infectious disease in past 14 days?: No Do you have a fever (greater than 100.4 F or 38 C)?: No Have you tested positive for COVID-19?: No Exposed to someone with COVID-19 in past 14 days?: No Do you have a sore throat?: No Do you have a cough?: No Do you have any weakness?: Yes Do you have any diarrhea?: No Are you experiencing any unusual bleeding?: No Do you have any muscle aches/pain?: No Do you have any abdominal pain?: No Are you experiencing loss of taste or smell?: No Other Medical History Have you received the Flu Vaccine for this season: No Have you received the Pneumonia Vaccine: No ROS Obtained: Yes Systems reviewed as appropriate & no additional complaints except as documented Physical Exam General General appearance: alert and in no apparent distress Head Head exam: atraumatic and normocephalic Eye Eye exam: Present PERRL and EOMI ENT ENT exam: Present mucous membranes moist Neck Neck exam: Present normal inspection Chest Chest inspection: Present normal inspection and symmetric chest wall rise Respiratory Respiratory exam: Present normal lung sounds bilaterally; Absent respiratory distress Cardiovascular Cardiovascular exam: Present regular rate and normal rhythm Abdominal Exam Abdominal exam: Present soft; Absent tenderness Extremities Exam Extremities exam: Present normal inspection Neurological Exam Neurological exam: Present alert, oriented X3 and CN II-XII intact; Absent motor sensory deficit Psychiatric Psychiatric exam: Present normal affect Skin Skin exam: Present warm and dry Medical Decision Making Medical Records Screening: Per USPSTF and CDC recommendations, given the prevalence of disease in our region, it is our hospital?s policy to screen for HIV and viral Hepatitis for all patients aged 18 and over and those with ongoing risk factors. [place] Inquiry Pt receiving controlled substance: No Vital Signs: 08/13/24 11:23 08/13/24 11:37 08/13/24 12:05 Temperature 98.0 F Temperature Source Oral Pulse Rate 88 88 Pulse Rate [Radial] 86 Respiratory Rate 18 15 11 L Blood Pressure 129/80 134/83 Blood Pressure [Right Arm] 169/99 H Blood Pressure Mean 99 100 Blood Pressure Mean [Right Arm] 122 Blood Pressure Source [Right Arm] Automatic Cuff Blood Pressure Position [Right Arm] Sitting 02 Sat by Pulse Oximetry 98 98 98 Oxygen Delivery Method Room Air 08/13/24 12:31 08/13/24 13:00 Temperature Temperature Source Pulse Rate 68 71 Pulse Rate [Radial] Respiratory Rate 11 L 10 L Blood Pressure 132/77 139/84 Blood Pressure [Right Arm] Blood Pressure Mean 99 91 Blood Pressure Mean [Right Arm] Blood Pressure Source [Right Arm] Blood Pressure Position [Right Arm] 02 Sat by Pulse Oximetry 97 98 Oxygen Delivery Method Lab Data Lab Results 08/13/24 11:20: WBC 6.4, RBC 5.36, Hgb 16.3, Hct 46.6, MCV 86.9, MCH 30.4, MCHC 35.0, RDW 12.7, Plt Count 293, MPV 9.4, Neut % (Auto) 56.5, Lymph % (Auto) 34.5, [place] % (Auto) 6.6, Eos % (Auto) 1.3, Baso % (Auto) 0.8, Neut # (Auto) 3.6, Lymph # (Auto) 2.2, [place] # (Auto) 0.4, Eos # (Auto) 0.1, Baso # (Auto) 0.1, PT 11.3, INR 1.02, APTT 27.6, Sodium 141, Potassium 3.7, Chloride 108 H, Carbon Dioxide 26, Anion Gap 10.7, BUN 11, Creatinine 0.90, Estimated GFR 84, Est GFR ( Amer) 102, Glucose 134 H, Calcium 9.3, Total Bilirubin 0.8, AST 33, ALT 35, Alkaline Phosphatase 107, Troponin I < 0.01, Total Protein 8.2, Albumin 4.6, Globulin 3.6 H, Albumin/Globulin Ratio 1.3, Triglycerides 167 H, Cholesterol 133 L, LDL Cholesterol Direct 67.43 L, VLDL Cholesterol 33, HDL Cholesterol 28 L, Cholesterol/HDL Ratio 4.8 H, Plasma/Serum Alcohol < 10 08/13/24 12:53: Urine Color Yellow, Urine Appearance Clear, Urine pH 6.0, Ur Specific [place] <= 1.005, Urine Protein Negative, Urine Glucose (UA) Negative, Urine Ketones Negative, Urine Blood Negative, Urine Nitrate Negative, Urine Bilirubin Negative, Urine Urobilinogen 0.2, Ur Leukocyte Esterase Negative, Urine RBC None, Urine WBC None, Ur Squamous Epith Cells None, Urine Bacteria None 08/13/24 12:56: Urine Opiates Screen Negative, Ur Barbituates Screen Negative, Ur Phencyclidine Scrn Negative, Ur Amphetamines Screen Negative, U Benzodiazepines Scrn Positive H, Urine Cocaine Screen Negative, U Marijuana (THC) Screen Negative 08/13/24 11:20 08/13/24 11:20 Orders (Tests/Meds): ED MEDICATIONS Generic Name Dose Route Start Last Admin Trade Name Freq PRN Reason Stop Dose Admin Sodium Chloride 10 ml 08/13/24 11:21 Sodium Chloride 0.9% 10ml Flush Syringe IV 09/12/24 11:20 NEEDED PRN Maintain IV Site Discontinued Medications Generic Name Dose Route Start Last Admin Trade Name Freq PRN Reason Stop Dose Admin Acetaminophen 1,000 mg 08/13/24 11:21 08/13/24 11:48 Acetaminophen 1,000mg/100ml Vial IV 08/13/24 11:22 1,000 mg ONCE ONE Administration Diazepam 5 mg 08/13/24 11:29 08/13/24 11:48 Diazepam 5mg Tablet PO 08/13/24 11:30 5 mg ONCE ONE Administration Iopamidol 80 ml 08/13/24 11:55 08/13/24 11:57 Iopamidol-370 (76%);100ml Bottle IV 08/13/24 11:56 80 ml ONCE ONE Administration Iopamidol 80 ml 08/13/24 11:58 08/13/24 11:59 Iopamidol-370 (76%);100ml Bottle IV 08/13/24 11:59 80 ml ONCE ONE Administration Sodium Chloride 50 ml 08/13/24 11:55 08/13/24 11:56 0.9 % Sodium Chloride 50 Ml Vial IV 08/13/24 11:56 50 ml ONCE ONE Administration Sodium Chloride 10 ml 08/13/24 11:55 08/13/24 11:56 Sodium Chloride 0.9% 10ml Syr (Rad Only) IV 08/13/24 11:56 10 ml ONCE ONE Administration Sodium Chloride 50 ml 08/13/24 11:58 08/13/24 11:59 0.9 % Sodium Chloride 50 Ml Vial IV 08/13/24 11:59 50 ml ONCE ONE Administration ORDERS Category Date Time Status CT Venogram head Stat Cat Scan 08/13/24 11:[address] angio head Stat Cat Scan 08/13/24 11:[address] angio neck Stat Cat Scan 08/13/24 11:[address] head/brain wo con Stat Cat Scan 08/13/24 11:21 Completed Activated Partial Thrombo Time Stat Lab 08/13/24 11:20 Completed Complete Blood Count Auto Diff Stat Lab 08/13/24 11:20 Completed Comprehensive Metabolic Panel Stat Lab 08/13/24 11:20 Completed Drug Screen,Urine Stat Lab 08/13/24 12:56 Results Ethyl Alcohol Stat Lab 08/13/24 11:20 Completed HIV Combo Stat Lab 08/13/24 11:42 Ordered Hepatitis C Ab Qual. W/ RFX Stat Lab 08/13/24 11:42 Ordered Lipid Panel Stat Lab 08/13/24 11:20 Completed Prothrombin Time INR Stat Lab 08/13/24 11:20 Completed Troponin I Stat Lab 08/13/24 11:20 Completed Urinalysis and Microscopic Stat Lab 08/13/24 12:53 Completed ECG Data Tracing #1: Independently interpreted by me rate is 82, rhythm is regular, axis is normal, no ST elevation in anatomical contiguous leads, QTc 393. Medical Decision Narrative: In summary patient is a 68-year-old male past medical history described above who presents emergency department for evaluation of horizontal binocular diplopia. Patient is hemodynamically stable and nontoxic-appearing upon arrival, afebrile. My concern for intracranial process is high. He does not have any focal weakness to suspect acute stroke however it is on the differential and workup will be conducted with hematologic labs, emergent CT angio of the head and neck, noncontrasted CT scan of the head, CT venogram of the head. Initial inventions include Tylenol and home dose Valium. Initial workup reviewed by me, hematologic labs are nonactionable no significant leukocytosis or transfusable anemia no MALA or critical electrolyte abnormality initial troponin undetectably low. Noncontrasted CT scan informally visualized by me of the head no acute large intra-axial hemorrhage or mass with midline shift. Formal read shows no acute intracranial process chronic bilateral maxillary sinusitis. CTA and CTV head no acute abnormality. Tortuous basilar artery. Case discussed with [facility] Dr. Schwab who graciously accepted patient for transfer for continued evaluation given acute onset horizontal diplopia for which patient will likely need MRI. Critical Care Critical Care Time Critical Care Time: No
[2024-08-13 11:23] VITALS: BP 169/99; PULSE 86; RESP 18; TEMP 36.7; O2SAT 98; BMI 38.6
[2024-08-13 11:29] LABS: Basophils # 0.1 K/mm3 (0-0.2); Basophils % 0.8 % (0.1-2.0); Eosinophils # 0.1 Kmm3 (0.0-0.4); Eosinophils % 1.3 % (0.1-12.0); Hematocrit 46.6 % (42.0-52.0); Hemoglobin 16.3 g/dL (14.1-18.0); Immature Granulocytes # 0.02 10^3uL; Immature Granulocytes % 0.3 %; Lymphocytes # 2.2 K/mm3 (0.7-4.5); Lymphocytes % 34.5 % (10-50); Mean Corpuscular Hemoglobin 30.4 pg (27.0-31.2); Mean Corpuscular Volume 86.9 fl (80-94); Mean Platelet Volume 9.4 fl (7.4-10.4); Monocytes # 0.4 K/mm3 (0.1-1.0); Monocytes % 6.6 % (1.7-9.3); Neutrophils # 3.6 K/mm3 (1.8-7.8); Neutrophils % 56.5 % (37.0-80.0); Nucleated Red Blood Cells # 0 10^3/uL; Nucleated Red Blood Cells % 0 %; Platelet Count 293 K/mm3 (142-424); Red Blood Count 5.36 M/mm3 (4.60-6.20); Red Cell Distribution Width 12.7 % (11.5-17.5); Red Cell Distribution Width-SD 39.9 fL; White Blood Count 6.4 K/mm3 (4.8-10.8)
--- OUTSIDE RECORDS SUMMARY | 2024-08-13 11:29 | XMS_ITS | Clinical Summary ---
Author Organization [facility] Address [address] [place] [id number] Care Team Providers Care Yarn Dry Room Worker Name Role Phone Unknown, Attending Provider Primary Care Provide r Unavailable Source Comments This information has been disclosed to you from confidential records protectedfrom disclosure by state law. You shall make no further disclosure of thisinformation without the specific, written, and informed release of theindividual to whom it pertains, or as otherwise permitted by law. A generalauthorization for the release of medical or other information is not sufficientfor the purposes of therelease of HIV test results or diagnoses. [id number] Allergies No known active allergies Medications No known medications Social History Tobacco Use Types Packs/Day Years Used Date Smoking Tobacco: Light Smoker Tobacco Cessation:Ready to Q uit: No Alcohol Use Standard Drinks/Week Comments Yes 0 (1 standard drink = 0.6 oz pure alcohol) history of etoh. 9 beers today, crown today Sex and Gender Information Value Date Recorded Sex Assigned at Not on file Legal Sex Male 6:10 PM EDT Gender Identity Not on file Sexual Orientation Not on file Last Filed Vital Signs Vital Sign Reading Time Taken Comments Blood Pressure 127/74 12/09/2013 6:56 PM EDT Pulse 103 12/09/2013 6:56 PM EDT Temperature 36.8 C (98.2 F) 12/09/2013 6:56 PM EDT Respiratory Rate 14 12/09/2013 6:56 PM EDT Oxygen Saturation 96% 12/09/2013 6:56 PM EDT Inhaled Oxygen Concentration 96% 12/09/2013 6 :56 PM EDT Weight - - Height - - Body Mass Index - - Plan of Treatment Not on file Insurance [employer] Care Teams Yarn Dry Room Worker Relationship Specialty Start Date End Date Unknown, Attending Provider PCP - General 12/09/13
--- NOTE | 2024-08-13 11:33 | ECG_ITS ---
APPROVED REPORT Exam: Resting ECG HR:82 bpm ECG Measurements Heart Rate 82 AXES PA 223 P 34 QRSd 114 QRS 7 QT 355 T 47 QTc 393 Conclusion SINUS RHYTHM WITH FIRST DEGREE AV BLOCK MODERATE INTRAVENTRICULAR CONDUCTION DELAY [110+ ms QRS DURATION] ABNORMAL ECG Electronically signed by : ERNIE MARIE, 08/16/2024 23:36:50
[2024-08-13 11:37] VITALS: BP 129/80; PULSE 88; RESP 15; O2SAT 98
[2024-08-13 11:38] LABS: Albumin Level 4.6 g/dl (3.5-5.0); Chloride 108 mmol/L (98-107); Potassium 3.7 mmoL/L (3.5-5.1); Sodium 141 mmol/L (136-145)
[2024-08-13 11:41] LABS: Activated Partial Thrombo Time 27.6 seconds (22.8-30.6); Alanine Aminotransferase 35 U/L (12-78); Albumin/Globulin Ratio 1.3 (1.1-1.8); Alkaline Phosphatase 107 U/L (38-126); Anion Gap 10.7 mEq/L (5-15); Aspartate Amino Transferase 33 U/L (17-59); Bilirubin,Total 0.8 mg/dl (0.2-1.3); Blood Urea Nitrogen 11 mg/dl (9-20); Calcium 9.3 mg/dl (8.4-10.2); Carbon Dioxide 26 mmol/L (22.0-30.0); Cholesterol 133 mg/dl (140-200); Estimated Glomerular Filt Rate 84 ml/min (>60); GFR (African American) 102 ML/MIN (>60); Globulin 3.6 g/dL (1.3-3.2); Glucose 134 mg/dl (74-100); INR 1.02 (0.9-1.1); Prothrombin Time 11.3 seconds (10.1-12.5); Total Protein,Serum 8.2 g/dl (6.3-8.2); Triglycerides 167 mg/dl (30-150); VLDL Cholesterol 33 mg/dL (0-40)
[2024-08-13 11:42] LABS: Chol/HDL Ratio 4.8 (1-3.5); HDL Cholesterol 28 mg/dl (40-60)
--- NOTE | 2024-08-13 11:44 | PC.NURSE ---
PT TO CT
[2024-08-13] MEDS: diazePAM 5MG TABLET 5 MG PO (11:48)
[2024-08-13] MEDS: ACETAMINOPHEN 1,000MG/100ML VIAL 1000 MG IV (11:48)
[2024-08-13 11:49] LABS: Ethyl Alcohol < 10 mg/dl (0-10)
[2024-08-13 11:53] LABS: Direct LDL Cholesterol 67.43 mg/dL (100-129)
[2024-08-13 11:56] LABS: Troponin I < 0.01 ng/ml (0.00-0.034)
[2024-08-13] MEDS: SODIUM CHLORIDE 0.9% 10ML SYR (RAD ONLY) 10 ML IV (11:56)
[2024-08-13] MEDS: 0.9 % SODIUM CHLORIDE 50 ML VIAL IV ×2 (11:56→11:59)
[2024-08-13] MEDS: IOPAMIDOL-370 (76%);100ML BOTTLE 80 ML IV ×2 (11:57→11:59)
[2024-08-13 12:05] VITALS: BP 134/83; PULSE 88; RESP 11; O2SAT 98
[2024-08-13 12:31] VITALS: BP 132/77; PULSE 68; RESP 11; O2SAT 97
[2024-08-13 12:58] LABS: Microscopic, Urine URINE MICROSCOPIC (MICROSCOPIC)
[2024-08-13 13:00] VITALS: BP 139/84; PULSE 71; RESP 10; O2SAT 98
[2024-08-13 13:05] LABS: Appearance,Urine CLEAR (Clear); Bilirubin,Urine Negative (Negative); Blood, Urine Negative (Negative); Color,Urine YELLOW (Yellow); Glucose,Urine (UA) Negative (Negative); Ketones,Urine Negative (Negative); Leukocyte Esterase,Urine Negative (Negative); Nitrate,Urine Negative (Negative); Protein,Urine Negative (Negative); Specific Gravity, Urine <= 1.005 (1.005-1.030); Urobilinogen,Urine 0.2 EU/dl (0.2)
[2024-08-13 13:23] LABS: Barbiturates Screen,Urine Negative ng/ml (<200); Benzodiazepines Screen,Urine Positive ng/ml (<200)
[2024-08-13 13:24] LABS: Amphetamine/Metha Screen,Urine Negative ng/ml (<1000); Opiate Screen,Urine Negative ng/ml (<300)
[2024-08-13 13:25] LABS: Cannabinoid Screen,Urine Negative ng/ml (<50)
[2024-08-13 13:26] LABS: Cocaine Screen,Urine Negative ng/ml (<300); Phencyclidine Screen,Urine Negative ng/ml (<25)
--- NOTE | 2024-08-13 13:50 | PC.NURSE ---
Called [facility] about transferring this pt for diplopia. [facility] advised that they would call us back
--- NOTE | 2024-08-13 14:00 | PC.NURSE ---
DR MARIE AT BEDSIDE TO UPDATE PT
--- NOTE | 2024-08-13 14:29 | PC.NURSE ---
Called EMS and made them aware of this transfer. they advised they would be up shortly
[2024-08-13 14:33] VITALS: BP 146/75; PULSE 66; RESP 18; TEMP 37; O2SAT 99
--- NOTE | 2024-08-13 14:40 | PC.NURSE ---
REPORT GIVEN TO EMS
[2024-08-13 14:59] LABS: HIV Combo NEGATIVE (Negative)
[2024-08-13 15:05] LABS: Methadone Screen,Urine Negative ng/ml (<300)
[2024-08-13 15:07] LABS: Hepatitis C Ab Qual. W/ RFX NEGATIVE (Negative)
== END 2024-08-13 14:47 | disposition short-term general hospital (02) ==
PROVIDERS: Emergency Provider Emergency Medicine; PCP Internal Medicine
DX: H53.2 Diplopia (principal); I10 Essential (primary) hypertension; E78.5 Hyperlipidemia, unspecified; F41.9 Anxiety disorder, unspecified; Z11.59 Encounter for screening for other viral diseases; Z11.4 Encounter for screening for human immunodeficiency virus [HIV]
CPT/HCPCS: 70450; 70496; 70498; 80053; 80061; 80074; 80307; 80320; 81001; 84484; 85025; 85610; 85730; 87389; 93005; 96374; 99285; J0131; Q9967

== ENCOUNTER 2024-10-25 09:50 | Outpatient (CLI) | payer MEDICARE, OTHER, SELFPAY ==
--- OUTSIDE RECORDS SUMMARY | 2024-10-04 09:30 | XMS_ITS | Encounter Summary ---
Author Organization Healthcare Address [address] [place] [address] Care Team Providers Care Fly Tier Name Role Phone Pcp, No Primary Care Provider Unavailabl e Encounter Details Date Type Department Care Team (Late st Contact Info) Description 10/04/2024 9:30 AM EDT Office Visit [facility] [address] [place] [address] Jocelyne Live MD [address] [address] Right abducens nerve palsy (Primary Dx) Social History Tobacco Use Types Packs/Day Years Used Date Smoking Tobacco: Never Passive Smoke Exposure: Past Smokeless Tobacco: Never Humiliation, Afraid, Rape, a nd Kick questionnaire Answer Date Recorded Within the last year, have y ou been afraid of your partner or ex-partner? Patient unable to answer 08/14/2024 Within the last year, have y ou been humiliated or emotionally abused in other ways by your partner or ex-partner? Patient unable to answer 08/14/2024 Within the last year, have y ou been kicked, hit, slapped, or otherwise physically hurt by your partner or ex-partner? Patient unable to answer 08/14/2024 Within the last year, have y ou been raped or forced to have any kind of sexual activity by your partner or ex-partner? Patient unable to answer 08/14/2024 AUDIT-C Answer Date Recorded Q1: How often do you have a drink containing alc ohol? Never 08/13/2024 Average Number of Drinks Not on file 025 Frequency of Binge Drinking Not on file 07/29 Hunger Vital Sign Answer Date Recorded Within the past 12 months, y ou worried that your food would run out before you got the money to buy more. Patient unable to answer 08/14/2024 Within the past 12 months, t he food you bought just didn't last and you didn't have money to get more. Patient unable to answer 08/14/2024 PRAPARE - Transportation Answer Date Re corded In the past 12 months, has l ack of transportation kept you from medical appointments or from getting medications? Patient unable to answer 08/14/2024 In the past 12 months, has l ack of transportation kept you from meetings, work, or from getting things needed for daily living? Patient unable to answer 08/14/2024 Housing Stability Vital Sign Answer Cezar e Recorded In the last 12 months, was t here a time when you were not able to pay the mortgage or rent on time? Patient unable to answer 08/14/2024 In the past 12 months, how m any times have you moved where you were living? 0 08/14/2024 At any time in the past 12 m onths, were you homeless or living in a longterm (including now)? Patient unable to answer 08/14/2024 Utilities Answer Date Recorded In the past 12 months has th e electric, gas, oil, or water company threatened to shut off services in your home? Patient unable to answer 08/14/2024 Sex and Gender Information Value Date Recorded Sex Assigned at Not on file Legal Sex Male 7:34 PM EDT Gender Identity Not on file Sexual Orientation Not on file documented as of this encounter Miscellaneous Notes * Progress Notes - Jocelyne Live MD - 10/04/2024 9:30 AM EDT Subjective Patient ID: Ruben Mooney is a 68 y.o. male. HPI Ruben Mooney is a 68 y.o. male presents today in clinic for 6-8wk F/U with history of CN6 palsy right eye (OD).He states that is vision has been stable. Denies any double vision since last visit. Denies any flashes/floaters. Pt not using any drops. Last edited by Dionne Foote on 10/04/2024 9:28 AM. No current outpatient medications on file. (Ophthalmic Drugs) No current facility-administered medications for this visit. (Ophthalmic Drugs) Current Outpatient Medications (Other) Medication Sig aspirin 81 MG EC tablet Take 1 tablet by mouth daily. atorvastatin (Lipitor) 10 MG tablet Take 1 tablet by mouth daily. diazePAM (Valium) 10 MG tablet Take 1 tablet by mouth 2 times a day. ibuprofen 800 MG tablet Take 1 tablet by mouth 3 times a day as needed for mild pain. levothyroxine (Synthroid, Levoxyl) 125 MCG tablet Take 1 tablet by mouth daily. lisinopril 20 MG tablet Take 1 tablet by mouth daily. omeprazole (PriLOSEC) [address] capsule Take 1 capsule by mouth daily. Do not crush or chew. tamsulosin (Flomax) 0.4 MG 24 hr capsule Take 1 capsule by mouth 2 times a day. No current facility-administered medications for this visit. (Other) Objective Base Eye Exam Visual Acuity (Snellen - Linear) Right Left Dist sc 20/25 -1 20/20 Tonometry (Tonopen, 9:41 AM) Right Left Pressure 14 14 Pupils Pupils Right PERRL Left PERRL Visual Orellana Right Left Full Full Extraocular Movement Right Left Full Full Neuro/Psych Oriented x3: Yes Mood/Affect: Normal Refraction Wearing Rx Sphere Right +3.75 Left +3.75 Type: readers Manifest Refraction Sphere Cylinder Dist VA Add Near VA Right +1.00 Sphere 20/15 +2.50 J1+ Left +1.25 Sphere 20/15 +2.50 J1+ Assessment/Plan Assessment & Plan Right abducens nerve palsy Follow up visit. Denies diplopia since last visit. Stable exam today Observe Follow up 1 year CEE Electronically Signed by: Delroy Worthington MD - 10/04/2024 - 9:48 AM Patient was seen and evaluated by the resident and attending. I agree with the findings. documented in this encounter Plan of Treatment Upcoming Encounters Date Type Department Care Team (Late st Contact Info) Description 10/10/2025 1:00 PM EDT Office Visit [facility] [address] [place] [address] Jocelyne Live MD [address] [phone] documented as of this encounter Visit Diagnoses Diagnosis Right abducens nerve palsy- Primary documented in this encounter Additional Health Concerns Assessment Noted Time A fall risk assessment has been complete d for the patient 08/23/2024 2:14 PM EDT A Body Mass Index follow-up plan has been documented for the patient 10/04/2024 10:07 AM EDT documented as of this encounter Care Teams Fly Tier Relationship Specialty Start Date End Date Pcp, [place] [address] PCP - General Family Medicine 08/13/24 documented as of this encounter
[2024-10-25 15:56] LABS: Hemoglobin A1C 5.2 % (4.0-6.0)
[2024-10-25 16:22] LABS: Albumin Level 4.7 g/dl (3.5-5.0); Chloride 107 mmol/L (98-107); Sodium 141 mmol/L (136-145)
[2024-10-25 16:23] LABS: Potassium 4.2 mmoL/L (3.5-5.1)
[2024-10-25 16:25] LABS: Alanine Aminotransferase 28 U/L (12-78); Albumin/Globulin Ratio 1.6 (1.1-1.8); Alkaline Phosphatase 105 U/L (38-126); Anion Gap 13.2 mEq/L (5-15); Aspartate Amino Transferase 33 U/L (17-59); Bilirubin,Total 0.7 mg/dl (0.2-1.3); Blood Urea Nitrogen 16 mg/dl (9-20); Carbon Dioxide 25 mmol/L (22.0-30.0); Cholesterol 130 mg/dl (140-200); Creatinine,Serum 0.80 mg/dl (0.66-1.25); Estimated Glomerular Filt Rate 96 ml/min (>60); GFR (African American) 117 ML/MIN (>60); Globulin 2.9 g/dL (1.3-3.2); Total Protein,Serum 7.6 g/dl (6.3-8.2); Triglycerides 117 mg/dl (30-150)
[2024-10-25 16:26] LABS: Calcium 9.2 mg/dl (8.4-10.2); Glucose 78 mg/dl (74-100); HDL Cholesterol 34 mg/dl (40-60)
[2024-10-25 16:59] LABS: Prostate Specific Ag, Diagnost 0.248 ng/ml (0.0-4.0)
[2024-10-25 17:00] LABS: Thyroid Stimulating Hormone 2.22 uIU/mL (0.465-4.68)
--- OUTSIDE RECORDS SUMMARY | 2024-10-26 12:49 | XMS_ITS | Clinical Summary ---
Author Organization [facility] Address [address] [place] [address] Care Team Providers Care Fox Farmer Name Role Phone Unknown, Attending Provider Primary [...] therelease of HIV test results or diagnoses. [id number] Allergies No known active allergies Medications [...] on file Insurance [employer] Care Teams Fox Farmer Relationship Specialty Start Date End Date Unknown, Attending Provider PCP - General 12/09/13
--- OUTSIDE RECORDS SUMMARY | 2024-10-26 12:49 | XMS_ITS | Encounter Summary ---
Author Organization Healthcare Address [address] [place] [address] Care Team Providers Care Acoustic Intelligence Specialist Name Role Phone Pcp, No Primary Care Provider Unavailabl e Encounter Details Date Type Department Care Team (Latest Contact Info) Description 10/04/2024 Travel Social History Tobacco Use Types Packs/Day Years [...] any time in the past 12 m [facility], were you homeless or living in a detention (including now)? Patient unable to answer 08/14/2024 [...] on file documented as of this encounter Plan of Treatment Upcoming Encounters Date Type Department Care Team (Late st Contact Info) Description 10/10/2025 1:00 PM EDT Office Visit [facility] [address] [place] [address] Jocelyne Live MD [address] [address] documented as of this encounter Visit Diagnoses Not on filedocumented in this encounter Additional Health Concerns Assessment Noted Time A fall risk assessment has been complete d for the patient 08/23/2024 2:14 PM EDT A Body Mass Index follow-up plan has been documented for the patient 10/04/2024 10:07 AM EDT documented as of this encounter Care Teams Acoustic Intelligence Specialist Relationship Specialty Start Date End Date Pcp, [place] [address] PCP - General Family Medicine 08/13/24 documented as of this encounter
--- OUTSIDE RECORDS SUMMARY | 2024-10-26 12:50 | XMS_ITS | Referral Summary ---
Author Organization [employer] ([place], [place], [place], [place]) Address [address] [place] [address] Care Team Providers Care Ladies' Locker Room Attendant Name Role Phone Toñito Munguia MD Primary Care Provider [phone] Allergies No known active allergies Medications atorvastatin (LIPITOR) 10 MG tablet Take 1 tablet (10 mg total) by mouth nightly. 10/20/2022 Active levothyroxine (SYNTHROID, LEVOTHROID) 125 MCG tablet Take 1 tablet (125 mcg total) by mouth daily. 10/20/2022 Active omeprazole (PriLOSEC) 40 MG capsule Take 1 capsule (40 mg total) by mouth daily. 10/20/2022 Active diazePAM (VALIUM) 10 MG tablet Take 1 tablet (10 mg total) by mouth as needed. 11/02/2022 Active lisinopriL (PRINIVIL,ZESTR IL) 20 MG tablet Take 1 tablet (20 mg total) by mouth daily. 10/20/2022 Active tamsulosin (FLOMAX) 0.4 mg Cap 24 hr capsule Take 1 capsule (0.4 mg total) by mouth nightly. 10/20/2022 Active aspirin 81 MG EC tablet Take 1 tablet (81 mg total) by mouth daily. Active neomycin-polymy georgiana-hydrocortis one (CORTISPORIN) 3.5-10,000-1 mg/mL-unit/mL-% otic solution SMARTSIG:In Ear(s) 06/27/2023 Active tamsulosin (FLOMAX) 0.4 mg Cap 24 hr capsule Take 1 capsule (0.4 mg total) by mouth 2 (two) times daily. 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 Cancer Staging:Clinical stage from 11/04/2022:Stage IIB(cT1c, cN0, cM0, PSA: 7.5, Grade Group: 2) - Signed by Burke Patel MD on 11/04/2022 Social History Tobacco Use Types Packs/Day Years Used Date Smoking Tobacco: Never Passive Smoke Exposure: Past Smokeless Tobacco: Never Tobacco Cessation:Counseling Given: Not Answered Alcohol Use Standard Drinks/Week Comments Yes 0 (1 standard drink = 0.6 oz pur e alcohol) 3 beers a month Family and Community Support Answer Cezar e Recorded Help with Day to Day Activities Not on file 03/08/2023 Feeling Lonely or Isolated Not on file 03/08 Educational Attainment Answer Date Robert rded Speak language other than Egyptian at home Not on file 03/08/2023 Want help with school or training Not on file 03/08/2023 Substance Use Answer Date Recorded Used prescription meds for non-medical reasons N ot on file 03/08/2023 Used illegal drugs past 12 months Not on file 03/08/2023 Sex and Gender Information Value Date Recorded Sex Assigned at Not on file Legal Sex Male 1:07 PM CDT Gender Identity Not on file Sexual Orientation Not on file Last Filed Vital Signs Vital Sign Reading Time Taken Comments Blood Pressure 105/71 03/13/2024 3:48 PM EST Pulse 80 03/13/2024 3:48 PM EST Temperature 37.1 C (98.7 F) 07/28/2023 2:23 PM EDT Respiratory Rate 16 07/28/2023 2:23 PM EDT Oxygen Saturation 96% 07/28/2023 2:23 PM EDT RA Inhaled Oxygen Concentration - - Weight 114.2 kg (251 lb 12.8 oz) 03/13/2024 3:48 PM EST Height 172.7 cm (5' 8 ) 03/13/2024 3:48 PM EST Body Mass Index 38.29 03/13/2024 3:48 PM EST Plan of Treatment Upcoming Encounters Date Type Department Care Team (Late st Contact Info) Description 11/20/2024 2:30 PM EDT Office Visit [facility] Urology - [address] [place] [address] David Chaudhari MD [address] [facility] [address] [place] [id number] Medical Devices Implanted Type Area Legislative Director Device Identifier Shelf Expiration Date Model / Serial / Lot Hydrogel Spaceoar Evangelista 10ml -2100 - [id number] Implanted:Qty : 1 on 01/24/2023 by Robert Duarte MD at [facility] IMPLANTS N/A: Perianal [employer]ONCOLOGY 01/05/2024 SV-2100 / / [id number] Insurance MEDICARE PART A B Advance Directives For more information, please contact: [phone] * Full Code (Latest Code Status on File) Date Activated Date Inactivated Comments 01/24/2023 6:12 AM 01/24/2023 1:58 PM Care Teams Ladies' Locker Room Attendant Relationship Specialty Start Date End Date Toñito Munguia MD [address] [place] [address] [place] [address] PCP - General General Internal Medicine 01/13/23
--- OUTSIDE RECORDS SUMMARY | 2024-10-26 12:50 | XMS_ITS | Encounter Summary ---
Author Organization [employer] ([place], [place], [place], [place]) Address [address] [place] [address] Care Team Providers Care Automotive Repair Technician Name Role Phone Toñito Munguia MD Primary Care Provider [phone] Reason for Visit * Reason Onset Date Comments Appointment 09/19/2023 PHONE CALL Encounter Details Date Type Department Care Team (Late st Contact Info) Description 09/19/2023 Telephone [facility] Urology - [address] [place] [address] David Chaudhari MD [address] [facility] [address] [place] [address] Appointment (PHONE CALL) Social History Tobacco Use Types Packs/Day Years Used Date Smoking Tobacco: Never Passive Smoke Exposure: Past Smokeless Tobacco: Never Alcohol Use Standard Drinks/Week Comments Yes 0 (1 standard drink = 0.6 oz pur e alcohol) 3 beers a month Family and Community Support Answer Cezar e Recorded Help with Day to Day Activities Not on file 03/08/2023 Feeling Lonely or Isolated Not on file 03/08 Educational Attainment Answer Date Robert rded Speak language other than Kinyarwanda at home Not on file 03/08/2023 Want [...] as of this encounter Miscellaneous Notes * Telephone Encounter - Darinel Venkatesh Calzada - 09/20/2024 10:48 AM EDT PHONE CALL documented in this encounter Plan of Treatment Upcoming Encounters Date Type Department Care Team (Late st Contact Info) Description 11/20/2024 2:30 PM EDT Office Visit [facility] Urology - [address] [place] [address] David Chaudhari MD [address] [facility] [address] [place], [place] [id number] documented as of this encounter Visit Diagnoses Not on filedocumented in this encounter Care Teams Automotive Repair Technician Relationship Specialty Start Date End Date Toñito Munguia MD [address] [place] [address] [place] [phone] PCP - General General Internal Medicine 01/13/23 documented as of this encounter
--- OUTSIDE RECORDS SUMMARY | 2024-10-26 12:50 | XMS_ITS | Encounter Summary ---
Author Organization Healthcare Address [address] [place] [id number] Care Team Providers Care Imaging Scheduler Name Role Phone Pcp, No Primary Care Provider Unavailabl e Encounter Details Date Type Department Care Team (Late st Contact Info) Description 08/13/2024 Ophth Exam [facility] [address] [place] [address] Sophia Bolton MD [address] [place] [address] Social History Tobacco Use Types Packs/Day Years Used Date Smoking Tobacco: Never Smokeless Tobacco: Never Humiliation, Afraid, Rape, a [...] any time in the past 12 m [facility], were you homeless or living in a fdc (including now)? Patient unable to answer 08/14/2024 [...] on file documented as of this encounter Functional Status * Calculated C-SSRS Risk Score (Lifetime/Recent) Answer Date of Assessment Author No Risk Indicated 08/14/2024 8:10 AM EDT Fahad Martinez RN * Question Answer Date of Assessment Author 1. Wish to be (Past 1 Month) No 025 8:10 AM EDT Fahad Martinez RN 2. Non-Specific Active Suici radha Thoughts (Past 1 Month) No 08/14/2024 8:10 AM EDT Geno Martinez RN 6. Suicidal Behavior (Lifetime) No 8:10 AM EDT Fahad Martinez RN documented as of this encounter Plan of Treatment Upcoming Encounters Date Type Department Care Team (Late st Contact Info) Description 10/10/2025 1:00 PM EDT Office Visit [facility] [address] [place] [address] Jocelyne Live MD [address] [place] [address] documented as of this encounter Visit Diagnoses Not on filedocumented in this encounter Additional Health Concerns Assessment Noted Time A Body Mass Index follow-up plan has been documented for the patient 08/14/2024 5:25 PM EDT documented as of this encounter Care Teams Imaging Scheduler Relationship Specialty Start Date End Date Pcp, [place] [address] PCP - General Family Medicine 08/13/24 documented as of this encounter
--- OUTSIDE RECORDS SUMMARY | 2024-10-26 12:50 | XMS_ITS | Clinical Summary ---
Author Organization [employer] ([place], [place], [place], [place]) Address [address] [place] [address] Care Team Providers Care Charter Driver Name Role Phone Toñito Munguia MD Primary Care Provider [phone] Allergies No known active allergies Medications atorvastatin [...] Signed by Burke Patel MD on 11/04/2022 Family History Medical History Relation Name Comments No Known Problem Father No Known Problem Mother Relation Name Status Comments Father Mother Social History Tobacco Use Types Packs/Day Years [...] Date Robert rded Speak language other than Algerian at home Not on file 03/08/2023 Want [...] Description 11/20/2024 2:30 PM EDT Office Visit [facility] Urology - [address] [place] [address] David Chaudhari MD [address] [facility] [address] [place] [address] Health Maintenance Due Date Last Done Comments CT Colonography 1957 Colonoscopy 1957 Colorectal Cancer Screening 1957 FOBT/FIT 1957 Fit-DNA (Cologuard) 1957 Sigmoidoscopy 1957 Depression Screening (12+) 1969 Hepatitis C Screening 10/13/1975 DTAP/TDAP/TD VACCINES (1 - Tdap) 1976 Pneumococcal 50+ years (1 of 1 - PCV) 10/13/2007 Shingles Vaccine (Zoster) (1 of 2) 10/13/2007 Medicare Initial AWV [id number] 09/30/2023 COVID-19 VACCINE (3 season) 10/30/202307/2020, 05/10/2020 Falls Risk Screening 02/29/2024 Influenza Vaccine (#1) 2024 Tobacco Cessation Counseling and Screening (12+) 03/13/2025 03/13/2024 Respiratory Syncytial Virus (RSV) Adult or (1 - 1-dose 75+ series) 2032 Medical Devices Implanted Type Area City Designer Device Identifier Shelf Expiration Date Model / Serial / Lot Hydrogel Spaceoar Evangelista 10ml Sv-2100 - [id number] Implanted:Qty : 1 on 01/24/2023 by Robert Duarte MD at [facility] IMPLANTS N/A: Perianal [employer] 01/05/2024 SV-2100 / / [id number] Insurance MEDICARE PART A B SUPP Advance Directives For more information, please contact: [phone] * Full Code (Latest Code Status on File) Date Activated Date Inactivated Comments 01/24/2023 6:12 AM 01/24/2023 1:58 PM Care Teams Charter Driver Relationship Specialty Start Date End Date Toñito Munguia MD [address] [place] [address] PCP - General General Internal Medicine 01/13/23
--- OUTSIDE RECORDS SUMMARY | 2024-10-26 12:50 | XMS_ITS | Encounter Summary ---
Author Organization [employer] ([place], [place], [place], [place]) Address [address] [place] [address] Care Team Providers Care Sanding Machine Operator Or Tender Name Role Phone Toñito Munguia MD Primary Care Provider [phone] Reason for Visit * Reason Onset Date Comments Appointment 05/24/2023 PHONE CALL Encounter Details Date Type Department Care Team (Late st Contact Info) Description 05/24/2023 Telephone [facility] Urology - [address] [place] [phone] Robert Duarte MD [address] [place] [address] Appointment (PHONE CALL) Social History Tobacco Use [...] Date Robert rded Speak language other than Mongolian at home Not on file 03/08/2023 Want [...] Miscellaneous Notes * Telephone Encounter - Darinel Calzada - 09/19/2024 2:07 PM EDT PHONE CALL documented in this encounter Plan of Treatment Upcoming Encounters Date Type Department Care Team (Late st Contact Info) Description 11/20/2024 2:30 PM EDT Office Visit [facility] Urology - [address] [place] [address] David Chaudhari MD [address] [facility] [address] [place], [place] [id number] documented as of this encounter Visit Diagnoses Not on filedocumented in this encounter Care Teams Sanding Machine Operator Or Tender Relationship Specialty Start Date End Date Toñito Munguia MD [address] [place] [address] [place] [address] PCP - General General Internal Medicine 01/13/23 documented as of this encounter
--- OUTSIDE RECORDS SUMMARY | 2024-10-26 12:50 | XMS_ITS | Clinical Summary ---
Author Organization Healthcare Address [address] [place] [address] Care Team Providers Care Image Scientist Name Role Phone Pcp, No Primary Care Provider Unavailabl e Allergies No known active allergies Medications tamsulosin (Flomax) 0.4 MG 24 hr capsule Take 1 capsule by mouth 2 times a day. Active ibuprofen 800 MG tablet Take 1 tablet by mouth 3 times a day as needed for mild pain. Active lisinopril 20 MG tablet Take 1 tablet by mouth daily. Active atorvastatin (Lipitor) 10 MG tablet Take 1 tablet by mouth daily. Active levothyroxine (Synthroid, Levoxyl) 125 MCG tablet Take 1 tablet by mouth daily. Active omeprazole (PriLOSEC) [address] capsule Take 1 capsule by mouth daily. Do not crush or chew. Active diazePAM (Valium) 10 MG tablet Take 1 tablet by mouth 2 times a day. Active aspirin 81 MG EC tablet Take 1 tablet by mouth daily. Active Active Problems Problem Noted Date Diagnosed Date Diplopia 08/14/2024 Assessment & Plan (08/23/2024 3:16 PM EDT): CN6 palsy OD Discussed normal imaging. Would obs for now Can patch OD to help. Hopefully will resolve quickly over the next few weeks to months. If not, can consider glasses with prisms. FU 6-8 weeks diplopia recheck with MRx Encounters Date Type Department Care Team Description 10/04/2024 9:30 AM EDT Office Visit [facility] [address] [place] [phone] Jocelyne Live MD Right abducens nerve palsy (Primary Dx) 10/04/2024 Travel 08/23/2024 3:00 PM EDT Office Visit [facility] [address] [place] [phone] Jocelyne Live MD Diplopia (Primary Dx) 08/23/2024 Travel 08/14/2024 Telephone [facility] [address] [place] [phone] None, None 08/14/2024 Travel 08/13/2024 3:46 PM EDT - 08/14/2024 5:44 PM EDT Hospital Encounter [facility] Emergency [facility] [address] [place] [address] Adolph Paniagua MD Prabhu, MD Nicolas De La Garza Jagannadha R, MD Diplopia (Primary Dx) Discharge Disposition: Home or Self Care 08/13/2024 Ophth Exam [facility] [address] [place] [address] Sophia Bolton MD 08/13/2024 Travel from Last 3 Months Family History Medical History Relation Name Comments Arthritis Brother Relation Name Status Comments Brother Social History Tobacco Use Types Packs/Day Years Used Date Smoking Tobacco: Never Passive Smoke Exposure: Past Smokeless Tobacco: Never Tobacco Cessation:Counseling Given: Not Answered Humiliation, Afraid, Rape, a nd Kick questionnaire [...] any time in the past 12 m [facility], were you homeless or living in a long term (including now)? Patient unable to answer 08/14/2024 [...] Sign Reading Time Taken Comments Blood Pressure 122/79 08/14/2024 5:33 PM EDT Pulse 65 08/14/2024 5:33 PM EDT Temperature 36.7 C (98 F) 08/14/2024 5:33 PM EDT Respiratory Rate 18 08/14/2024 5:33 PM EDT Oxygen Saturation 96% 08/14/2024 5:33 PM EDT Inhaled Oxygen Concentration - - Weight 115 kg (254 lb) 08/13/2024 3:58 PM EDT Height 172.7 cm (5' 8 ) 08/13/2024 3:58 PM EDT Body Mass Index 38.62 08/13/2024 3:58 PM EDT Plan of Treatment Upcoming Encounters Date Type Department Care Team (Late st Contact Info) Description 10/10/2025 1:00 PM EDT [facility] [address] [place] [address] Jocelyne Live MD [address] [place] [address] Health Maintenance Due Date Last Done Comments [facility]-Depression Screening 1957 [facility]-Medicare Annual Wellness (AWV) 1955 [facility]-Infant/Child/Adol SDOH Screenings 1955 [id number] Vaccine (#1) 1962 [facility]-DTaP,Tdap,and Td Vaccine s (1 - Tdap) 1976 CT Colonography 2002 Colonoscopy 2002 FIT-DNA 2002 FIT 2002 FOBT 2002 Sigmoidoscopy 2002 [facility]-Colorectal Cancer Screening 2002 [facility]-Pneumococcal Vaccine: 50 + Years (1 of 1 - PCV) 10/13/2007 [facility]-Zoster Vaccines (1 of 2) 10/13/2007 [facility]-RSV Vaccine: 60+ Years o r (1 - Risk 60-74 years 1-dose series) 2017 [facility]-Influenza Vaccine (#1) 2024 [facility]- SDOH Screenings 02/13/2025 [facility]-Adult SDOH Screenings 02/13/2025 08/14/2024 [facility]-Hepatitis C Screening Completed 08/13/2024 [facility]-Obesity Intervention Completed 025, 08/23/2024, 08/13/2024 HPV Vaccines Aged Out No longer eligi ble based on patient's age to complete this topic [facility]-HIB Vaccines Aged Out No longer e ligible based on patient's age to complete this topic [facility]-Hepatitis A Vaccines Aged Out No longer eligible based on patient's age to complete this topic [facility]-IPV Vaccines Aged Out No longer e ligible based on patient's age to complete this topic [facility]-Rotavirus Vaccines Aged Out No lo nger eligible based on patient's age to complete this topic Procedures Procedure Name Priority Date/Time Associated Diagnosis Comments MUSK IGG AB CBA, SERUM, WITH RFLX (SO REFLEX ONLY) Routine 08/14/2024 11:43 AM EDT EXTRA TUBE RED TOP Routine 08/14/2024 11 :43 AM EDT EXTRA TUBES Routine 08/14/2024 11:43 AM EDT MISCELLANEOUS LAB TEST (SO) Routine 08/14/2024 11:43 AM EDT MYASTHENIA GRAVIS REFLEXIVE PANEL(SO) STAT 08/14/2024 11:43 AM EDT VAS US CAROTID DUPLEX BILATERAL STAT 08/14/2024 7:48 AM EDT POCT GLUCOSE METER UNSOLICITED RESULTS Routine 08/14/2024 6:45 AM EDT BASIC METABOLIC PANEL, PLASMA Routine 08/14/2024 4:07 AM EDT CBC W/O DIFFERENTIAL Routine 08/14/2024 4:07 AM EDT POCT GLUCOSE METER UNSOLICITED RESULTS Routine 08/14/2024 2:12 AM EDT MR ORBITS W AND WO IV CONTRAST STAT 08/13/2024 9:55 PM EDT MR HEAD W AND WO IV CONTRAST STAT 08/13/2024 9:55 PM EDT FREE T4, PLASMA STAT Add-on 08/13/2024 4:56 PM EDT T3 Add-On 08/13/2024 4:56 PM EDT TSH STAT Add-on 08/13/2024 4:56 PM EDT C-REACTIVE PROTEIN, PLASMA STAT Add-on 08/13/2024 4:56 PM EDT SEDIMENTATION RATE, AUTOMATED STAT Add-on 08/13/2024 4:56 PM EDT ED HIV 1/2 ANTIBODY/ANTIGEN SCREEN WITH REFLEX TO HIV I/II DIFFERENTIATION STAT 08/13/2024 4:56 PM EDT ED PROTOCOL HIV 1/2 ANTIBODY/ANTIGEN SCREEN W/REFLEX TO HIV 1/2 ANTIBODY DIFFERENTIATION STAT 08/13/2024 4:56 PM EDT HEPATITIS C ANTIBODY - ED W/REFLEX TO HCV QUANT PCR STAT 08/13/2024 4:56 PM EDT COMPREHENSIVE METABOLIC PANEL, PLASMA STAT 08/13/2024 4:56 PM EDT PROTHROMBIN TIME(PT) / INR STAT 08/13/2024 4:56 PM EDT CBC WITH AUTO DIFFERENTIAL STAT 08/13/2024 4:56 PM EDT from Last 3 Months Results * MuSK IgG Ab CBA, Serum, with Rflx (SO Reflex Only) (08/14/2024 11:43 AM EDT) MuSK Ab IgG CBA IFA Screen, Serum <1:10 <1:10 08/18/2024 7:04 AM EDT [facility]) Blood Venous blood specimen / Unknown Venipuncture / Unknown 08/14/2024 11:43 AM EDT 08/14/2024 12:37 PM EDT Narrative [facility]) - 08/18/2024 7:04 AM EDT MuSK Antibody, IgG is not detected. No further testing will be performed. INTERPRETIVE INFORMATION: MuSK IgG Ab CBA, Serum, with Rflx Muscle-specific kinase (MuSK) antibody is found in a subset of patients with myasthenia gravis, primarily those seronegative for muscle acetylcholine receptor (AChR) antibody. Decreasing antibody levels may be associated with therapeutic response; therefore, clinical correlation must be strongly considered. A negative test result does not rule out a diagnosis of myasthenia gravis. This indirect fluorescent antibody cell-based assay (CBA) utilizes muscle-specific kinase (MuSK) transfected cells for the detection of the MuSK IgG antibody. This test was developed and its performance characteristics determined by [facility]. It has not been cleared or approved by the U.S. Food and Drug Administration. This test was performed in a CLIA-certified laboratory and is intended for clinical purposes. Performed By: [facility] [address] [place] [address] Wire Twisting Machine Operator: Dylan Berry MD, PhD CLIA Number: [id number] Agustin Valenzuela MD LAB REF LAB BLOOD AND FLUID ORD Final Result [facility] [employer]) [address] [place] [id number] * Myasthenia Gravis Reflexive Panel (08/14/2024 11:43 AM EDT) Acetylcholine Receptor Binding Antibody 0.0 0.0 - 0.4 nmol/L 08/17/2024 12:17 PM EDT [facility] ([facility]) Acetylcholine Receptor Blocking Antibody 0 0 - 26 % 08/17/2024 12:17 PM EDT [facility] ([facility]) Blood Venous blood specimen / Unknown Venipuncture / Unknown 08/14/2024 11:43 AM EDT 08/14/2024 12:37 PM EDT Narrative [facility] ([facility]) - 08/17/2024 12:17 PM EDT INTERPRETIVE INFORMATION: Acetylcholine Binding Ab Negative ....... 0.0 - 0.4 nmol/L Positive ....... 0.5 nmol/L or greater Approximately 85-90 percent of patients with myasthenia gravis (MG) express antibodies to the acetylcholine receptor (AChR), which can be divided into binding, blocking, and modulating antibodies. Binding antibody can activate complement and lead to loss of AChR. Blocking antibody may impair binding of acetylcholine to the receptor, leading to poor muscle contraction. Modulating antibody causes receptor endocytosis resulting in loss of AChR expression, which correlates most closely with clinical severity of disease. Approximately 10-15 percent of individuals with confirmed myasthenia gravis have no measurable binding, blocking, or modulating antibodies. This test was developed and its performance characteristics determined by [facility]. It has not been cleared or approved by the US Food and Drug Administration. This test was performed in a CLIA certified laboratory and is intended for clinical purposes. INTERPRETIVE INFORMATION: Acetylcholine Blocking Ab Negative ............ 0-26 percent blocking Indeterminate ....... 27-41 percent blocking Positive ............ 42 percent or greater blocking Approximately 85-90 percent of patients with myasthenia gravis (MG) express antibodies to the acetylcholine receptor (AChR), which can be divided into binding, blocking, and modulating antibodies. Binding antibody can activate complement and lead to loss of AChR. Blocking antibody may impair binding of acetylcholine to the receptor, leading to poor muscle contraction. Modulating antibody causes receptor endocytosis resulting in loss of AChR expression, which correlates most closely with clinical severity of disease. Approximately 10-15 percent of individuals with confirmed myasthenia gravis have no measurable binding, blocking, or modulating antibodies. This test was developed and its performance characteristics determined by [facility]. It has not been cleared or approved by the US Food and Drug Administration. This test was performed in a CLIA certified laboratory and is intended for clinical purposes. Performed By: [facility] [address] [place] [address] Wire Twisting Machine Operator: Dylan Berry MD, PhD CLIA Number: [id number] Agustin Valenzuela MD LAB BLOOD ORDERABLES F inal Result [facility] ([facility]) [address] [place] [address] * Red Top (08/14/2024 11:43 AM EDT) Extra Hold for add-ons 08/14/2024 12:42 PM EDT [facility] Comment:Auto resulted. Blood Venous blood specimen / Unknown Venipuncture / Unknown 08/14/2024 11:43 AM EDT 08/14/2024 12:09 PM EDT Agustin Valenzuela MD LAB BLOOD ORDERABLES F inal Result Performing Organization Address [facility]/ZIP Co de Phone Number [facility] [address] [place] [address] * anti-Musk , LRP4 antibodies; Binocular diplopia; Thyroid work up negative; Negative; To determine if therapeutic challenge for MG will be pursued; Yes; In 3 days (1 day) - Miscellaneous Test (08/14/2024 11:43 AM EDT) Test name LRP4 antibodies 08/30/2024 10:15 AM EDT [facility] Test Result SEE SCANNED REPORT 08/30/2024 10:[address] [facility] See Scanned Result SEE SCANNED REPORT 08/30/2024 10:[address] [facility] Blood Venipuncture / Unknown 08/14/2024 11:43 AM EDT 08/14/2024 12:05 PM EDT Agustin Valenzuela MD LAB REF LAB BLOOD AND FLUID ORD Final Result Performing Organization Address [facility]/ZIP Co de Phone Number [facility] [address] [place] [address] * VAS US Carotid Duplex Bilateral (08/14/2024 7:48 AM EDT) Anatomical Region Laterality Modality Head, Neck, Vascular Ultrasound Impressions 08/14/2024 8:26 AM EDT Right Carotid: No significant carotid plaque is demonstrated. Flow is present in the CCA, ICA, and ECA. ICA velocities do not demonstrate evidence of a hemodynamically significant stenosis (less than 50%). Low index of suspicion for Giant Cell Arteritis. Left Carotid: No significant carotid plaque is demonstrated. Flow is present in the CCA, ICA, and ECA. ICA velocities do not demonstrate evidence of a hemodynamically significant stenosis (less than 50%). Low index of suspicion for Giant Cell Arteritis. Vertebral artery flow is antegrade, bilaterally. Subclavian artery flow is multiphasic, bilaterally. COMMUNICATION: Per this written report. Preliminary report signed by Renata Egan RVT on 08/14/2024 8:12 AM By electronically signing this report, I, the attending physician, attest that I have personally reviewed the images/data for the above examination(s) and I agree with the final edited report. Drafted by Renata Egan RVT on 08/14/2024 8:03 AM Final report signed by Rajinder Lamar on 08/14/2024 8:26 AM Narrative 08/14/2024 8:26 AM EDT CLINICAL INDICATION: Concern for giant-Cell Arteritis TECHNIQUE: Non-invasive, real time duplex exam of the extracranial carotid circulation, including bilateral temporal arteries with Doppler ultrasonic waveform and spectral analysis was performed. COMPARISON: None. FINDINGS: Right Carotid: CCA: 81 cm/s ICA: 81/30 cm/s; ICA/CCA ratio: 1.00 ECA: 99 cm/s Vertebral A: 25 cm/s Subclavian A: 53 cm/s Right Temporal artery: Entirety of artery assessed using B-mode, color-flow Doppler enhancement, and cine-loop imaging in both the longitudinal and axial planes. Intima-media thickness (IMT) measurements recorded within the right subclavian artery, axillary artery, temporal artery, frontal branch, and parietal branch are as follows (mm): Axillary artery: 0.53 mm Subclavian artery: Unable to accurately measure Superficial temporal artery: 0.18 mm Frontal branch: Unable to accurately measure Parietal branch: 0.18 mm There is not evidence for a halo. Left Carotid: CCA: 74 cm/s ICA: 64/25 cm/s; ICA/CCA ratio: 0.86 ECA: 72 cm/s Vertebral A: 39 cm/s Subclavian A: 89 cm/s Left Temporal artery: Entirety of artery assessed using B-mode, color-flow Doppler enhancement, and cine-loop imaging in both the longitudinal and axial planes. Intima-media thickness (IMT) measurements recorded within the left subclavian artery, axillary artery, temporal artery, frontal branch, and parietal branch are as follows (mm): Axillary artery: 0.65 mm Subclavian artery: 0.68 mm Superficial temporal artery: 0.22 mm Frontal branch: 0.18 mm Parietal branch: Unable to accurately measure There is not evidence for a halo. Procedure Note Rajinder Lamar MD - 08/14/2024 CLINICAL INDICATION: Concern for giant-Cell Arteritis TECHNIQUE: Non-invasive, real time duplex exam of the extracranial carotidcirculation, including bilateral temporal arteries with Doppler ultrasonicwaveform and spectral analysis was performed. COMPARISON: None. FINDINGS: Right Carotid: CCA: 81 cm/s ICA: 81/30 cm/s; ICA/CCA ratio: 1.00 ECA: 99 cm/s Vertebral A: 25 cm/s Subclavian A: 53 cm/s Right Temporal artery: Entirety of artery assessed using B-mode,color-flow Doppler enhancement, and cine-loop imaging in both thelongitudinal and axial planes. Intima-media thickness (IMT) measurementsrecorded within the right subclavian artery, axillary artery, temporalartery, frontal branch, and parietal branch are as follows (mm): Axillary artery: 0.53 mm Subclavian artery: Unable to accurately measure Superficial temporal artery: 0.18 mm Frontal branch: Unable to accurately measure Parietal branch: 0.18 mm There is not evidence for a halo. Left Carotid: CCA: 74 cm/s ICA: 64/25 cm/s; ICA/CCA ratio: 0.86 ECA: 72 cm/s Vertebral A: 39 cm/s Subclavian A: 89 cm/s Left Temporal artery: Entirety of artery assessed using B-mode, color- flowDoppler enhancement, and cine-loop imaging in both the longitudinal andaxial planes. Intima-media thickness (IMT) measurements recorded withinthe left subclavian artery, axillary artery, temporal artery, frontalbranch, and parietal branch are as follows (mm): Axillary artery: 0.65 mm Subclavian artery: 0.68 mm Superficial temporal artery: 0.22 mm Frontal branch: 0.18 mm Parietal branch: Unable to accurately measure There is not evidence for a halo. IMPRESSION: Right Carotid: No significant carotid plaque is demonstrated. Flow ispresent in the CCA, ICA, and ECA. ICA velocities do not demonstrateevidence of a hemodynamically significant stenosis (less than 50%). Low index of suspicion for Giant Cell Arteritis. Left Carotid: No significant carotid plaque is demonstrated. Flow ispresent in the CCA, ICA, and ECA. ICA velocities do not demonstrateevidence of a hemodynamically significant stenosis (less than 50%). Low index of suspicion for Giant Cell Arteritis. Vertebral artery flow is antegrade, bilaterally. Subclavian artery flow is multiphasic, bilaterally. COMMUNICATION: Per this written report. Preliminary report signed by Renata Egan RVT on 08/14/2024 8:12 AM By electronically signing this report, I, the attending physician, attestthat I have personally reviewed the images/data for the aboveexamination(s) and I agree with the final edited report. Drafted by Renata Egan RVT on 08/14/2024 8:03 AM Final report signed by Rajinder Lamar on 08/14/2024 8:26 AM us Agustin Valenzuela MD CV VASCULAR PROCEDURES Final Result * POCT glucose meter (08/14/2024 6:45 AM EDT) Only the most recent of2 resultswithin the time period is included. POCT Glucose 87 74 - 99 mg/dL 08/14/2024 6:47 AM EDT [facility] Comment:Accuracy of a glucos e result obtained from a capillary whole blood specimen relies upon adequate, non-compromised capillary blood flow. If the capillary glucose result is not consistent with the patient's clinical signs and symptoms, glucose testing should be repeated with either an arterial or venous sample on the glucometer or sent to the main labortory for testing. Comment 08/14/2024 6:47 AM EDT [facility] Shale Miner ID Omar Zendejasra 08/14/2024 6:47 AM EDT [facility] Device ID [id number] 08/14/2024 6:47 AM EDT [facility] Specimen Type POC Capillary 08/14/2024 6:47 AM EDT [facility] Blood Capillary blood specimen / Unknown 08/14/2024 6:45 AM EDT 08/14/2024 6:47 AM EDT us Agustin Valenzuela MD LAB POINT OF C ARE TEST DOCKED DEVICE UNSOLICITED RESULTS Final Result [facility] [address] [place] [address] * CBC (08/14/2024 4:07 AM EDT) WBC Count 7.20 3.70 - 10.30 10*3/uL LAB HEMATOLOGY METHOD 08/14/2024 4:31 AM EDT [facility] RBC Count 4.67 4.60 - 6.10 10*6/uL LAB HEMATOLOGY METHOD 08/14/2024 4:31 AM EDT [facility] HGB 14.1 13.7 - 17.5 g/dL LAB HEMATOLOGY METHOD 08/14/2024 4:31 AM EDT [facility] HCT 40.3 40.0 - 51.0 % LAB HEMATOLOGY METHOD 08/14/2024 4:31 AM EDT [facility] Platelet Count 276 155 - 369 10*3/uL LAB HEMATOLOGY METHOD 08/14/2024 4:31 AM EDT [facility] MCV 86 79 - 98 fL LAB HEMATOLOGY METHOD 08/14/2024 4:31 AM EDT [facility] MCH 30.2 26.0 - 32.0 pg LAB HEMATOLOGY METHOD 08/14/2024 4:31 AM EDT [facility] MCHC 35.0 30.7 - 35.5 g/dL LAB HEMATOLOGY METHOD 08/14/2024 4:31 AM EDT [facility] RDW 12.8 11.5 - 14.5 % LAB HEMATOLOGY METHOD 08/14/2024 4:31 AM EDT [facility] MPV 9.4 8.8 - 12.5 fL LAB HEMATOLOGY METHOD 08/14/2024 4:31 AM EDT [facility] nRBC 0.0 <=0.0 per 100 WBCs LAB HEMATOLOGY METHOD 08/14/2024 4:31 AM EDT [facility] Blood Venous blood specimen / Unknown Venipuncture / Unknown 08/14/2024 4:07 AM EDT 08/14/2024 4:22 AM EDT Agustin Valenzuela MD LAB BLOOD ORDERABLES F inal Result [facility] [address] [place] [address] * Basic metabolic panel (08/14/2024 4:07 AM EDT) Glucose, Plasma 95 74 - 99 mg/dL 08/14/2024 4:51 AM EDT [facility] BUN, Plasma 12 8 - 23 mg/dL 08/14/2024 4:51 AM EDT [facility] Creatinine, Plasma 0.83 0.70 - 1.20 mg/dL 08/14/2024 4:51 AM EDT [facility] BUN/Creatinine Ratio 14 08/14/2024 4:51 AM EDT [facility] Sodium, Plasma 139 136 - 145 mmol/L 08/14/2024 4:51 AM EDT [facility] Potassium, Plasma 3.7 3.6 - 4.9 mmol/L 08/14/2024 4:51 AM EDT [facility] Chloride, Plasma 104 97 - 107 mmol/L 08/14/2024 4:51 AM EDT [facility] CO2, Plasma 23 22 - 29 mmol/L 08/14/2024 4:51 AM EDT [facility] Anion Gap 12 6 - 16 mmol/L 08/14/2024 4:51 AM EDT [facility] Total Calcium, Plasma 9.1 8.9 - 10.2 mg/dL 08/14/2024 4:51 AM EDT [facility] eGFRcr 96.5 mL/min/1.7 3m*2 08/14/2024 4:51 AM EDT [facility] Comment:Reported eGFRcr in m L/min/1.73m2 is based the CKD-EPI 2020 equation that does not use a race coefficient. Blood Venous blood specimen / Unknown Venipuncture / Unknown 08/14/2024 4:07 AM EDT 08/14/2024 4:20 AM EDT Agustin Valenzuela MD LAB BLOOD ORDERABLES F inal Result Performing Organization Address [facility]/ZIP Co de Phone Number [facility] [address] [place] [phone] * MR Orbits w and wo IV Contrast (08/13/2024 9:55 PM EDT) Anatomical Region Laterality Modality Orbital structure Magnetic Reson ance Impressions 08/13/2024 10:28 PM EDT No acute intracranial abnormality. No orbital abnormality identified. CRITICAL RESULT: No. COMMUNICATION: Per this written report. Drafted by Robert Pearce MD on 08/13/2024 10:13 PM Final report signed by Robert Pearce MD on 08/13/2024 10:28 PM Narrative 08/13/2024 10:28 PM EDT CLINICAL INDICATION: binocular diplopia TECHNIQUE: Multiplanar multiecho sequences were performed through the brain utilizing T1 and T2 weighting, as well as either axial susceptibility weighted or gradient echo sequences, and axial diffusion weighted images. Imaging was performed with and without contrast administration: 11.5 mL of Gadavist. Multiplanar multiecho sequences were performed through the orbits utilizing T1 and T2 weighted, with and without contrast, and with and without fat-saturation. COMPARISON: None. FINDINGS: MRI BRAIN: Diagnostic Quality: Adequate. The ventricles and sulci are normal in size. There are a mild amount of scattered T2/Flair hyperintense foci throughout the supratentorial white matter, which are nonspecific but most likely represent sequela of chronic small vessel ischemic disease. No abnormal intracranial enhancement is present. There is no abnormal parenchymal susceptibility artifact or restricted diffusion. Vascular Flow Voids: Normal. Extracranial Findings: None. Craniocervical Junction and Skull Base: No tonsillar ectopia or mass is present. MRI ORBIT: Diagnostic Quality: Adequate. Orbits: No orbital masses are present. The globes are normal. The extraocular muscles are normal in size, signal and configuration. The lacrimal glands are normal. Optic Nerves: The optic nerves are normal in size and signal intensity. No abnormal enhancement is present within the optic nerves or of the optic nerve sheaths. Soft Tissues: No masses are present within the preseptal and periorbital soft tissues Sellar/Suprasellar Region: No sellar or suprasellar masses are present. No cavernous sinus masses are present. Paranasal Sinuses/Nasal Cavity: Left maxillary sinus retention cyst. No nasal masses are present. Procedure Note Robert Pearce MD - 08/13/2024 CLINICAL INDICATION: binocular diplopia TECHNIQUE: Multiplanar multiecho sequences were performed through the brain utilizingT1 and T2 weighting, as well as either axial susceptibility weighted orgradient echo sequences, and axial diffusion weighted images. Imaging wasperformed with and without contrast administration: 11.5 mL of Gadavist. Multiplanar multiecho sequences were performed through the orbitsutilizing T1 and T2 weighted, with and without contrast, and with andwithout fat-saturation. COMPARISON: None. FINDINGS: MRI BRAIN: Diagnostic Quality: Adequate. The ventricles and sulci are normal in size. There are a mild amount of scattered T2/Flair hyperintense foci throughoutthe supratentorial white matter, which are nonspecific but most likelyrepresent sequela of chronic small vessel ischemic disease. No abnormal intracranial enhancement is present. There is no abnormal parenchymal susceptibility artifact or restricteddiffusion. Vascular Flow Voids: Normal. Extracranial Findings: None. Craniocervical Junction and Skull Base: No tonsillar ectopia or mass ispresent. MRI ORBIT: Diagnostic Quality: Adequate. Orbits: No orbital masses are present. The globes are normal. Theextraocular muscles are normal in size, signal and configuration. Thelacrimal glands are normal. Optic Nerves: The optic nerves are normal in size and signal intensity. Noabnormal enhancement is present within the optic nerves or of the opticnerve sheaths. Soft Tissues: No masses are present within the preseptal and periorbitalsoft tissues Sellar/Suprasellar Region: No sellar or suprasellar masses are present. Nocavernous sinus masses are present. Paranasal Sinuses/Nasal Cavity: Left maxillary sinus retention cyst. Nonasal masses are present. IMPRESSION: No acute intracranial abnormality. No orbital abnormality identified. CRITICAL RESULT: No. COMMUNICATION: Per this written report. Drafted by Robert Pearce MD on 08/13/2024 10:13 PM Final report signed by Robert Pearce MD on 08/13/2024 10:28 PM us Adolph Paniagua MD IMG MRI PROCEDURES Final Resul t * MR Head w and wo IV Contrast (08/13/2024 9:55 PM EDT) Anatomical Region Laterality Modality Head Magnetic Resonan ce Impressions 08/13/2024 10:28 PM EDT No acute intracranial abnormality. No orbital abnormality identified. CRITICAL RESULT: No. COMMUNICATION: Per this written report. Drafted by Robert Pearce MD on 08/13/2024 10:13 PM Final report signed by Robert Pearce MD on 08/13/2024 10:28 PM Narrative 08/13/2024 10:28 PM EDT CLINICAL INDICATION: binocular diplopia TECHNIQUE: Multiplanar multiecho sequences were performed through the brain utilizing T1 and T2 weighting, as well as either axial susceptibility weighted or gradient echo sequences, and axial diffusion weighted images. Imaging was performed with and without contrast administration: 11.5 mL of Gadavist. Multiplanar multiecho sequences were performed through the orbits utilizing T1 and T2 weighted, with and without contrast, and with and without fat-saturation. COMPARISON: None. FINDINGS: MRI BRAIN: Diagnostic Quality: Adequate. The ventricles and sulci are normal in size. There are a mild amount of scattered T2/Flair hyperintense foci throughout the supratentorial white matter, which are nonspecific but most likely represent sequela of chronic small vessel ischemic disease. No abnormal intracranial enhancement is present. There is no abnormal parenchymal susceptibility artifact or restricted diffusion. Vascular Flow Voids: Normal. Extracranial Findings: None. Craniocervical Junction and Skull Base: No tonsillar ectopia or mass is present. MRI ORBIT: Diagnostic Quality: Adequate. Orbits: No orbital masses are present. The globes are normal. The extraocular muscles are normal in size, signal and configuration. The lacrimal glands are normal. Optic Nerves: The optic nerves are normal in size and signal intensity. No abnormal enhancement is present within the optic nerves or of the optic nerve sheaths. Soft Tissues: No masses are present within the preseptal and periorbital soft tissues Sellar/Suprasellar Region: No sellar or suprasellar masses are present. No cavernous sinus masses are present. Paranasal Sinuses/Nasal Cavity: Left maxillary sinus retention cyst. No nasal masses are present. Procedure Note Robert Pearce MD - 08/13/2024 CLINICAL INDICATION: binocular diplopia TECHNIQUE: Multiplanar multiecho sequences were performed through the brain utilizingT1 and T2 weighting, as well as either axial susceptibility weighted orgradient echo sequences, and axial diffusion weighted images. Imaging wasperformed with and without contrast administration: 11.5 mL of Gadavist. Multiplanar multiecho sequences were performed through the orbitsutilizing T1 and T2 weighted, with and without contrast, and with andwithout fat-saturation. COMPARISON: None. FINDINGS: MRI BRAIN: Diagnostic Quality: Adequate. The ventricles and sulci are normal in size. There are a mild amount of scattered T2/Flair hyperintense foci throughoutthe supratentorial white matter, which are nonspecific but most likelyrepresent sequela of chronic small vessel ischemic disease. No abnormal intracranial enhancement is present. There is no abnormal parenchymal susceptibility artifact or restricteddiffusion. Vascular Flow Voids: Normal. Extracranial Findings: None. Craniocervical Junction and Skull Base: No tonsillar ectopia or mass ispresent. MRI ORBIT: Diagnostic Quality: Adequate. Orbits: No orbital masses are present. The globes are normal. Theextraocular muscles are normal in size, signal and configuration. Thelacrimal glands are normal. Optic Nerves: The optic nerves are normal in size and signal intensity. Noabnormal enhancement is present within the optic nerves or of the opticnerve sheaths. Soft Tissues: No masses are present within the preseptal and periorbitalsoft tissues Sellar/Suprasellar Region: No sellar or suprasellar masses are present. Nocavernous sinus masses are present. Paranasal Sinuses/Nasal Cavity: Left maxillary sinus retention cyst. Nonasal masses are present. IMPRESSION: No acute intracranial abnormality. No orbital abnormality identified. CRITICAL RESULT: No. COMMUNICATION: Per this written report. Drafted by Robert Pearce MD on 08/13/2024 10:13 PM Final report signed by Robert Pearce MD on 08/13/2024 10:28 PM Adolph Paniagua MD IM MRI PROCEDURES Final Resul t * ED HIV 1/2 Antibody/Antigen Screen w/Reflex to HIV 1/2 Differentiation (08/13/2024 4:56 PM EDT) HIV 1 & 2 Antibody/Antigen Screen Non Reactive Non Reactive 08/13/2024 5:49 PM EDT [facility] Comment:Screening for HIV 1 & 2 antibodies, and P24 antigen is NONREACTIVE. No confirmatory testing is required. Blood Venous blood specimen / Unknown Venipuncture / Unknown 08/13/2024 4:56 PM EDT 08/13/2024 5:08 PM EDT us Adolph Paniagua MD LAB BLOOD ORDERABLES Final Res ult Performing Organization Address City/[facility]/ZIP Co de Phone Number [facility] [address] [place] [address] * T3 (08/13/2024 4:56 PM EDT) Pathologist [facility] T3, Serum 113 87 - 187 ng/dL 08/13/2024 10:18 PM EDT [facility] Blood Venous blood specimen / Unknown Venipuncture / Unknown 08/13/2024 4:56 PM EDT 08/13/2024 5:03 PM EDT us Adolph Paniagua MD LAB BLOOD ORDERABLES Final Res ult Performing Organization Address [facility] Co de Phone Number [facility] [address] [place] [address] * Hepatitis C Antibody - ED (08/13/2024 4:56 PM EDT) [facility] Hepatitis C Antibody Negative Negative 08/13/2024 5:49 PM EDT [facility] Blood Venous blood specimen / Unknown Venipuncture / Unknown 08/13/2024 4:56 PM EDT 08/13/2024 5:08 PM EDT us Adolph Paniagua MD LAB BLOOD ORDERABLES Final Res ult Performing Organization Address [facility] Co de Phone Number [facility] [address] [place] [address] * (ABNORMAL) Sed rate, automated (08/13/2024 4:56 PM EDT) [facility] Sedimentation Rate 25(H) <20 mm/hr 2024 8:46 PM EDT [facility] Blood Venous blood specimen / Unknown Venipuncture / Unknown 08/13/2024 4:56 PM EDT 08/13/2024 5:03 PM EDT us Adolph Paniagua MD LAB BLOOD ORDERABLES Final Res ult Performing Organization Address [facility] Co de Phone Number [facility] [address] [place] [address] * PT-INR (08/13/2024 4:56 PM EDT) Prothrombin Time 13.5 12.0 - 14.3 sec 08/13/2024 5:21 PM EDT [facility] INR 1.0 0.9 - 1.1 08/13/2024 5:21 PM EDT [facility] Blood Venous blood specimen / Unknown Venipuncture / Unknown 08/13/2024 4:56 PM EDT 08/13/2024 5:03 PM EDT Narrative [facility] - 08/13/2024 5:21 PM EDT OPTIMAL INR RANGES FOR PATIENT ON ORAL ANTICOAGULANT THERAPY Prevention of venous thromboembolism INR 2.0 to 3.0 In patients with heart disease: Atrial fibrillation INR 2.0 to 3.0 Valvular heart disease INR 2.0 to 3.0 Tissue heart valves INR 2.0 to 3.0 Mechanical prosthetic valves INR 2.5 to 3.5 Prevention of recurrent GA INR 2.5 to 3.5 us Adolph Paniagua MD LAB BLOOD ORDERABLES Final Res ult Performing Organization Address [facility] Co de Phone Number [facility] [address] [place] [address] * CBC w/diff (08/13/2024 4:56 PM EDT) WBC Count 7.37 3.70 - 10.30 10*3/uL LAB HEMATOLOGY METHOD 08/13/2024 5:06 PM EDT [facility] RBC Count 4.70 4.60 - 6.10 10*6/uL LAB HEMATOLOGY METHOD 08/13/2024 5:06 PM EDT [facility] HGB 14.4 13.7 - 17.5 g/dL LAB HEMATOLOGY METHOD 08/13/2024 5:06 PM EDT [facility] HCT 40.9 40.0 - 51.0 % LAB HEMATOLOGY METHOD 08/13/2024 5:06 PM EDT [facility] Platelet Count 260 155 - 369 10*3/uL LAB HEMATOLOGY METHOD 08/13/2024 5:06 PM EDT [facility] MCV 87 79 - 98 fL LAB HEMATOLOGY METHOD 08/13/2024 5:06 PM EDT [facility] MCH 30.6 26.0 - 32.0 pg LAB HEMATOLOGY METHOD 08/13/2024 5:06 PM EDT [facility] MCHC 35.2 30.7 - 35.5 g/dL LAB HEMATOLOGY METHOD 08/13/2024 5:06 PM EDT [facility] RDW 12.7 11.5 - 14.5 % LAB HEMATOLOGY METHOD 08/13/2024 5:06 PM EDT [facility] MPV 9.5 8.8 - 12.5 fL LAB HEMATOLOGY METHOD 08/13/2024 5:06 PM EDT [facility] nRBC 0.0 <=0.0 per 100 WBCs LAB HEMATOLOGY METHOD 08/13/2024 5:06 PM EDT [facility] Differential Type Automated LAB HEMATOLOGY METHOD 08/13/2024 5:06 PM EDT [facility] Neutrophils % 60 % LAB HEMATOLOGY METHOD 08/13/2024 5:06 PM EDT [facility] Lymphocytes % 29 % LAB HEMATOLOGY METHOD 08/13/2024 5:06 PM EDT [facility] Monocytes % 9 % LAB HEMATOLOGY METHOD 08/13/2024 5:06 PM EDT [facility] Eosinophils % 1 % LAB HEMATOLOGY METHOD 08/13/2024 5:06 PM EDT [facility] Basophils % 1 % LAB HEMATOLOGY METHOD 08/13/2024 5:06 PM EDT [facility] Immature Granulocytes % 0 % LAB HEMATOLOGY METHOD 08/13/2024 5:06 PM EDT [facility] Neutrophils Absolute 4.48 1.60 - 6.10 10*3/uL LAB HEMATOLOGY METHOD 08/13/2024 5:06 PM EDT [facility] Lymphocytes Absolute 2.13 1.20 - 3.90 10*3/uL LAB HEMATOLOGY METHOD 08/13/2024 5:06 PM EDT [facility] Monocytes Absolute 0.63 0.30 - 0.90 10*3/uL LAB HEMATOLOGY METHOD 08/13/2024 5:06 PM EDT [facility] Eosinophils Absolute 0.06 0.00 - 0.50 10*3/uL LAB HEMATOLOGY METHOD 08/13/2024 5:06 PM EDT [facility] Basophils Absolute 0.04 0.00 - 0.10 10*3/uL LAB HEMATOLOGY METHOD 08/13/2024 5:06 PM EDT [facility] Immature Granulocytes Absolute 0.03 0.00 - 0.06 10*3/uL LAB HEMATOLOGY METHOD 08/13/2024 5:06 PM EDT [facility] Blood Venous blood specimen / Unknown Venipuncture / Unknown 08/13/2024 4:56 PM EDT 08/13/2024 5:03 PM EDT Narrative [facility] - 08/13/2024 5:06 PM EDT Therapeutic decision making should be based on absolute values, rather than percentages. us Adolph Paniagua MD LAB BLOOD ORDERABLES Final Res ult Performing Organization Address City/[facility]/ZIP Co de Phone Number [facility] [address] [place] [address] * C-reactive protein (08/13/2024 4:56 PM EDT) CRP, Plasma 5.4 <=8.0 mg/L 08/13/2024 8:17 PM EDT [facility] Blood Venous blood specimen / Unknown Venipuncture / Unknown 08/13/2024 4:56 PM EDT 08/13/2024 5:03 PM EDT Narrative [facility] - 08/13/2024 8:17 PM EDT This CRP test is appropriate for assessment of infection, systemic inflammation and/or tissue injury. To assess cardiovascular disease risk order high sensitivity CRP (CRPH). us Adolph Paniagua MD LAB BLOOD ORDERABLES Final Res ult [facility] [address] [place] [address] * TSH (08/13/2024 4:56 PM EDT) Thyroid Stimulating Hormone, Plasma 1.36 0.40 - 4.20 uIU/mL 08/13/2024 8:33 PM EDT [facility] Blood Venous blood specimen / Unknown Venipuncture / Unknown 08/13/2024 4:56 PM EDT 08/13/2024 5:03 PM EDT us Adolph Paniagua MD LAB BLOOD ORDERABLES Final Res ult [facility] [address] [place] [address] * T4, free (08/13/2024 4:56 PM EDT) Free T4, Plasma 1.3 0.8 - 1.7 ng/dL 08/13/2024 8:33 PM EDT [facility] Blood Venous blood specimen / Unknown Venipuncture / Unknown 08/13/2024 4:56 PM EDT 08/13/2024 5:03 PM EDT us Adolph Paniagua MD LAB BLOOD ORDERABLES Final Res ult [facility] [address] [place] [address] * (ABNORMAL) CMP (08/13/2024 4:56 PM EDT) Glucose, Plasma 88 74 - 99 mg/dL 08/13/2024 5:28 PM EDT [facility] BUN, Plasma 10 8 - 23 mg/dL 08/13/2024 5:28 PM EDT [facility] Creatinine, Plasma 0.86 0.70 - 1.20 mg/dL 08/13/2024 5:28 PM EDT [facility] BUN/Creatinine Ratio 12 08/13/2024 5:28 PM EDT [facility] Sodium, Plasma 136 136 - 145 mmol/L 08/13/2024 5:28 PM EDT [facility] Potassium, Plasma 3.7 3.6 - 4.9 mmol/L 08/13/2024 5:28 PM EDT [facility] Chloride, Plasma 102 97 - 107 mmol/L 08/13/2024 5:28 PM EDT [facility] CO2, Plasma 22 22 - 29 mmol/L 08/13/2024 5:28 PM EDT [facility] Anion Gap 12 6 - 16 mmol/L 08/13/2024 5:28 PM EDT [facility] Total Calcium, Plasma 8.7(L) 8.9 - 10.2 mg/dL 08/13/2024 5:28 PM EDT [facility] Total Protein 7.1 6.3 - 7.9 g/dL 08/13/2024 5:28 PM EDT [facility] Albumin, Plasma 4.0 3.5 - 5.2 g/dL 08/13/2024 5:28 PM EDT [facility] AST, Plasma 22 10 - 50 U/L 08/13/2024 5:28 PM EDT [facility] ALT, Plasma 26 10 - 50 U/L 08/13/2024 5:28 PM EDT [facility] Alkaline Phosphatase, Plasma 103 40 - 115 U/L 08/13/2024 5:28 PM EDT [facility] Total Bilirubin, Plasma 0.4 0.2 - 1.1 mg/dL 08/13/2024 5:28 PM EDT [facility] eGFRcr 95.5 mL/min/1.7 3m*2 08/13/2024 5:28 PM EDT [facility] Comment:Reported eGFRcr in m L/min/1.73m2 is based the CKD-EPI 2020 equation that does not use a race coefficient. Blood Venous blood specimen / Unknown Venipuncture / Unknown 08/13/2024 4:56 PM EDT 08/13/2024 5:03 PM EDT us Adolph Paniagua MD LAB BLOOD ORDERABLES Final Res ult [facility] [address] [place] [address] from Last 3 Months Insurance MEDICARE [employer] Advance Directives * Full Code (Latest Code Status on File) Date Activated Date Inactivated Comments 08/14/2024 12:56 AM 08/14/2024 7:44 PM Question Answer Comments Patient has decision-making capacity? Yes Care Teams Image Scientist Relationship Specialty Start Date End Date Pcp, No [address] [place] [address] PCP - General Family Medicine 08/13/24
== END 2024-10-25 23:59 | disposition home or self-care (01) ==
LOC: LAB.DROPOF 10-26 12:44
PROVIDERS: PCP Internal Medicine; Visit Provider Internal Medicine
DX: C61 Malignant neoplasm of prostate (principal); E03.9 Hypothyroidism, unspecified; R73.02 Impaired glucose tolerance (oral); E78.5 Hyperlipidemia, unspecified; I10 Essential (primary) hypertension
CPT/HCPCS: 80053; 80061; 83036; 84153; 84443